=== PATIENT | male | born 1945 | race Caucasian/White ===

== ENCOUNTER → 2021-10-30 07:31 | Outpatient (BNVA) | payer MEDICARE, OTHER, SELFPAY | PROVIDERS: Family Provider Internal Medicine; PCP Internal Medicine; Visit Provider Urology | DX: N32.89 Other specified disorders of bladder (principal); C67.9 Malignant neoplasm of bladder, unspecified; Z86.39 Personal history of other endocrine, nutritional and metabolic disease; I48.0 Paroxysmal atrial fibrillation; Z86.79 Personal history of other diseases of the circulatory system; Z95.1 Presence of aortocoronary bypass graft | CPT/HCPCS: 52000; 81003; 99205 ==

== ENCOUNTER 2021-11-07 14:30 | Observation (INO) | payer MEDICARE, OTHER, SELFPAY ==
[2021-11-07] VITALS (24 sets, daily range): BP systolic 112–157; BP diastolic 50–93; PULSE 60–88; RESP 16–93; TEMP 36.1–36.9; O2SAT 90–100
--- NOTE | 2021-11-07 06:35 | W.PM.OPSUD ---
Surgery/Procedure H&P Update DATE OF PROCEDURE: November 07, 2021 DATE H&P PERFORMED: 10/29/21 H&P UPDATE INFORMATION: I have reviewed H&P completed within last 30 days, I have examined patient prior to procedure, No changes to prior documentation and H[place] is [place] [facility] [place] date indicated CHANGES TO PREVIOUS DOCUMENTATION: Confirm no blood thinners. Patient denied any further questions. Ready to proceed as planned PLANNED PROCEDURE: Operation Date: 11/07/21 08:00 Proposed Procedures p cystoscopy transurethral resection bladder tumor 60055,C67.9(Not Applicable) - Morris Humphries MD s cystoscopy transurethral resection bladder tumor 75967,C67.9(Not Applicable) - Morris Humphries MD
--- NOTE | 2021-11-07 06:46 | ECG_ITS ---
[facility] Test Date: 2021-11-07 Pat Name: Fernando Lowe Department: Room: Gender: Male Sales Planner: : 1945 Requested By: Morris Humphries Order Number: [id number] Jonathon MD: Kristi Ruffin M.D. Measurements Intervals [place] Rate: 71 P: 35 MA: 306 QRS: -19 QRSD: 80 T: 26 QT: 401 QTc: 437 Interpretive Statements SINUS RHYTHM WITH FIRST DEGREE AV BLOCK WITH OCCASIONAL VENTRICULAR PREMATURE COMPLEXES LOW QRS VOLTAGE IN PRECORDIAL LEADS [QRS DEFLECTION < 1.0 mV IN CHEST LEADS] INFERIOR MYOCARDIAL INFARCTION , PROBABLY OLD [40+ ms Q WAVE AND/OR ST/T ABNORMALITY IN II/aVF] Compared to ECG 06/16/2018 21:18:19 Myocardial infarct finding now present T-wave abnormality no longer present Electronically Signed On 11-07-2021 22:25:20 CDT by Kristi Ruffin M.D. [id number]
[2021-11-07 07:11] LABS: Glucose Point of Care 142 mg/dL (70-110)
[2021-11-07] MEDS: sodium chloride 0.9% 1,000 ML 30 ML IV ×2 (07:14→15:12)
[2021-11-07 07:18] LABS: Basophils % 0.6 %; Eosinophils # 0.2 10^3/uL (0.0-0.8); Eosinophils % 2.6 %; Hematocrit 47.8 % (42.0-52.0); Hemoglobin 15.8 g/dL (11.7-16.6); Lymphocytes # 1.5 10^3/uL (0.8-4.8); Lymphocytes % 21.2 %; Mean Corpuscular HGB Conc 33.1 g/dL (30.0-36.0); Mean Corpuscular Hemoglobin 28.8 pg (28.0-34.0); Mean Corpuscular Volume 87.2 fl (80-94); Mean Platelet Volume 9.8 fL (7.4-10.4); Monocytes # 0.5 10^3/uL (0.2-0.9); Monocytes % 7.5 %; Neutrophils # 4.75 10^3/uL (1.8-7.7); Neutrophils % 67.4 %; Nucleated Red Blood Cells % 0 %; Platelet Count 155 10^3/cmm (130-400); Red Blood Count 5.48 10^6/uL (4.1-5.3); Red Cell Distribution Width 13.2 % (12.1-15.1)
[2021-11-07] MEDS: levofloxacin-dextrose 5 % 500 MG/100 ML PREMIX 100 MG IV (07:41)
--- NOTE | 2021-11-07 07:41 | ANES.PREANE2 ---
Pre-Anesthetic Assessment Height/Weight: Height 1.96 m Weight 122.47 kg Temp Pulse Resp BP Pulse Ox 97.1 F L 88 93 H 145/77 93 11/07/21 06:51 11/07/21 06:51 11/07/21 06:51 11/07/21 06:51 11/07/21 06:51 Preop Diagnosis: Newly diagnosed bladder cancer Operation Date: 11/07/21 08:00 Proposed Procedures p cystoscopy transurethral resection bladder tumor 06885,C67.9(Not Applicable) - Morris Humphries MD s cystoscopy transurethral resection bladder tumor 29196,C67.9(Not Applicable) - Morris Humphries MD Familial anesthetic complications: None Was Beta Lauren taken within 24 hours: N/A Was Clonidine taken within 24 hours: N/A Last intake: Intake Last Liquid Date 11/06/21 Last Liquid Time 21:00 Last Solid Date 11/06/21 Last Solid Time 21:00 CV/HEM Atrial Fibrillation, Arrythmia, Coronary Artery Disease (CABG) and Hypertension S Echocardiogram 09/19/17 ?CONCLUSIONS ?1-Normal left ventricular cavity size. Normal left ventricular ?systolic function. No regional wall motion abnormalities. Left ?ventricular ejection fraction is estimated at 59 %. Grade II/IV ?diastolic dysfunction, moderately elevated filling pressures. ?2-No significant valve abnormalities. ?3-There is no pericardial effusion. ?4-Pulmonary artery systolic pressure is within normal limits. ?5-Right atrial pressure is around 5 mm of mercury. ?6-When compared to the prior echocardiogram dated 12/13/2015 ?patient ejection fraction has improved from mildly reduced from? normal 50% to 59% now. ?Emerson Aggarwal MD ? (Electronically Signed) GI Gastroesophageal Reflux Disease Metabolic Diabetes Mellitus, Hyperlipidemia and Morbid Obesity Neuropsych [facility] Anesthetic Plan ASA status: 3 Anesthesia: General Medications/Allergies Home Medications Medication Instructions Recorded Confirmed Last Taken Type acetaminophen 300 mg-codeine 30 mg 1 tab PO BID tab 11/30/19 11/07/21 11/06/21 History tablet gabapentin 600 mg tablet 1,200 mg PO TID tab 11/30/19 11/07/21 11/06/21 History metformin 500 mg tablet,extended 500 mg PO DAILY tab 11/30/19 11/07/21 11/06/21 History release 24 hr pantoprazole 40 mg tablet,delayed 40 mg PO BID tab 11/30/19 11/07/21 11/06/21 History release terazosin 10 mg capsule 10 mg PO DAILY cap 11/30/19 11/07/21 11/06/21 History atorvastatin 40 mg tablet 40 mg PO DAILY #90 tab 06/13/21 11/07/21 11/06/21 Rx furosemide 40 mg tablet (Lasix) 40 mg PO DAILY #90 tab 06/13/21 11/07/21 11/06/21 Rx potassium chloride 20 mEq 20 meq PO DAILY #90 tab 08/20/21 11/07/21 11/06/21 Rx tablet,extended release Allergies Allergy/AdvReac Type Severity Reaction Status Date / Time acetaminophen [From Percocet] Allergy Unknown Unknown Verified 11/06/21 09:52 oxycodone [From Percocet] Allergy Unknown went crazy Verified 11/06/21 09:52 Current Medications Generic Name Dose Route Start Last Admin Trade Name Freq PRN Reason Stop Dose Admin Sodium Chloride 1,000 mls @ 30 mls/hr 11/07/21 06:45 11/07/21 07:14 Sodium Chloride 0.9% IV 11/08/21 06:44 30 mls/hr .Q24H WALTER Administration PFSH Anesthesia Medical History (Updated 10/30/21 @ 10:12 by Morris Humphries MD) A-fib Bladder cancer Bladder mass History of Young's esophagus History of COPD History of deafness History of dysphagia History of heart failure History of low back pain Hx of aneurysm Status post AAA repair Hx of chronic arthritis Hx of coronary atherosclerosis Hx of emphysema Hx of gastroesophageal reflux (GERD) Hx of hyperlipidemia Surgical History (Updated 10/30/21 @ 10:12 by Morris Humphries MD) History of toe surgery RIGHT SIDE BIG TOE REMOVED Hx of appendectomy Hx of CABG Hx of esophagogastroduodenoscopy Hx of foot surgery Family History Father , AT AGE 55 Heart attack Mother , AT AGE 67 Lung disease Social History Smoking and tobacco status: former smoker Alcohol intake: never Marital status: Current occupational status: retired History of recent travel: No Data Anesthesia : 11/07/21 07:08 11/07/21 07:08 Short CBC 11/07/21 Range/Units 07:08 WBC 7.0 (4.0-10.0) 10^3/uL Hgb 15.8 (11.7-16.6) g/dL Hct 47.8 (42.0-52.0) % MCV 87.2 (80-94) fl Plt Count 155 (130-400) 10^3/cmm Neut % (Auto) 67.4 % Neut # (Auto) 4.75 (1.8-7.7) 10^3/uL Cardiac Studies: No Data to Display
[2021-11-07 07:43] LABS: Alanine Aminotransferase 14 U/L (0-41); Albumin Level 4.3 g/dL (3.5-5.2); Alkaline Phosphatase 76 IU/L (40-130); Anion Gap 15.9 (5-19); Aspartate Amino Transferase 20 U/L (0-40); Blood Urea Nitrogen 25 mg/dL (8-23); Calcium 9.2 mg/dL (8.5-10.5); Carbon Dioxide 26 mmol/L (22-29); Chloride 101 mmol/L (98-107); Globulin 3.7 g/dL (1.3-4.6); Glucose 147 mg/dL (65-115); Osmolality Calculated 295 mOsm/kg (285-295); Potassium 3.9 mmol/L (3.5-5.1); Sodium 139 mmol/L (136-145); Total Bilirubin 0.5 mg/dL (0.15-1.2)
[2021-11-07 07:44] LABS: Creatinine Clr Calc Pharmacy 68.9554
--- NOTE | 2021-11-07 07:47 | P.OP_ITS ---
Operative Report Date of procedure: November 07, 2021 Pre-op diagnosis: Newly diagnosed bladder cancer Post-op diagnosis: Newly diagnosed bladder cancer Procedure done: Cystoscopy, transurethral section of bladder tumor large Specimens removed/disposition: Bladder tumor chips Pathology: Bladder tumor specimen Surgeon: Yandel Anesthesia: General Urine output: Not measured Complications: None Brief History: Mr. Lowe is a very pleasant 75-year-old white male with recent diagnosis of gross hematuria. 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 Admitted for TURBT Procedure: After routine preoperative evaluation examination and obtaining of informed consent he was taken to the operating suite on 11/07/2021 where general anesthesia was administered without difficulty after appropriate timeout was performed, SCDs confirmed to be functioning, preoperative antibiotics administered, beta-aarti protocol confirmed. Prepped and draped in the usual sterile fashion in dorsolithotomy position paying careful attention to avoiding pressure points. 21 [place] cystoscope with 30 degree lens was introduced into the urethra meatus and advanced into the bladder under videoscopy. The bladder was systematically examined with both 30 and 70 degree lenses. Cystoscopic findings: The large left lateral wall/bladder neck tumor did not involve the left ureteral orifice. There was a medium sized tumor adjacent to the larger tumor more cephalad in roughly the same lateral location. There were multiple other small tumors around the bladder neck and anterior bladder wall extending down the right bladder neck distal to the left side of the trigone. Orifices were easily identified and not involved with any tumors. Urethra was then calibrated with [place] sounds and accommodated 30 [place]uran. 2% lidocaine jelly was instilled into the urethra and then a 25 [place] continuous-flow resectoscope sheath with visual obturator in place was advanced into the bladder without difficulty. There was some mild posterior dilation trauma. The gyrus bipolar system was utilized for resection fulguration. Super loop was utilized for initial resection down to the base. Deep sampling was obtained with muscle visualized at the base of the resection Button probe was used to obtain meticulous hemostasis The large tumor on the left lateral wall was resected first. It was vascular but easily controlled. After it was resected the medium sized tumor adjacent to it in a more cephalad direction was then resected. Bladder was carefully inspected and there were multiple small papillary tumors circumferential around the bladder neck as well as on anterior wall and extending posteriorly from the right side of the bladder neck towards the distal and lateral aspect of the right trigone. Careful attention was paid throughout the resection to avoid involvement of the orifices and this was accomplished. Muscle was identified at the base of multiple spots of the resection for deep sampling. Button probe was utilized for meticulous hemostasis. All chips were evacuated from the bladder. Hemostasis was visually c onfirmed. Bladder was drained with a 22 [place]uran three-way 30 cc balloon with 30 cc instilled in the balloon. Light CBI with normal saline was initiated. Specimen sent for pathologic evaluation. Catheter was confirmed to be functioning well the procedure was completed. Awakened in the operating room and returned to the recovery room in stable condition. PLANS: 1. Mitomycin this afternoon or tomorrow morning pending clearing of urine 2. Plan on discharging tomorrow most likely without catheter after voiding trial with 6 bottle void
[2021-11-07] MEDS: lidocaine 2% Urojet 20 mL TOPICAL (08:16)
--- NOTE | 2021-11-07 14:17 | ANE.PACU2 ---
Inpatient post-anesthesia follow up: Airway intact: Yes Vital signs: Temperature 97.0 F Pulse Rate 76 Respiratory Rate 18 Blood Pressure 127/64 Pulse Oximetry 93 Oxygen Delivery Me thod Room Air Oxygen Flow Rate 2 Fraction of Inspir ed Oxygen Hydration adequate: Yes Nausea and vomiting: No Pain level: 2 Mental status: Baseline
[2021-11-07] MEDS: atorvastatin 40 mg Tablet PO (15:11)
[2021-11-07] MEDS: gabapentin 400 mg Capsule 1200 MG PO ×2 (15:11→20:02)
[2021-11-07] MEDS: potassium chloride ER 20 mEq Tablet PO (15:11)
[2021-11-07] MEDS: docusate sodium 100 mg Capsule PO (15:11)
[2021-11-07] MEDS: pantoprazole DR 40 mg Tablet PO (15:12)
[2021-11-07] MEDS: acetaminophen-codeine 300-30mg Tablet 1 TAB PO (15:12)
[2021-11-07] MEDS: FUROsemide 40 mg Tablet PO (15:12)
--- NOTE | 2021-11-07 19:27 | PC.NURSE ---
Bedside Report to Maribel SINGER at this time.
[2021-11-08 02:00] VITALS: BP 142/78; PULSE 65; RESP 17; TEMP 36.6; O2SAT 94
[2021-11-08 06:32] VITALS: BP 121/66; PULSE 63; RESP 17; TEMP 36.6; O2SAT 92
[2021-11-08 08:00] VITALS: PULSE 77; O2SAT 93
--- NOTE | 2021-11-08 08:33 | P.DS_ITS ---
Discharge Providers Date of Admission: 11/07/21 14:30 Date of Discharge: November 08, 2021 Attending Provider at Admission: Morris Humphries MD Attending Provider at Discharge: Morris Humphries MD Primary Care Provider: Oscar Mcmanus DO Diagnoses at Discharge Discharge Diagnosis (1) Bladder cancer: Status: Acute Reason for Visit Reason for Visit: Brief History: Mr. Lowe is a very pleasant 75-year-old white male who was admitted for transurethral section of bladder tumor which was recently diagnosed during work- up for gross hematuria. Hospital Course Hospital Course Admitted on 11/07/2021 for TURBT. Was found to have a larger burden of tumor within expected. Most of the tumor was on the left lateral wall near the bladder neck and extending cephalad direction but he also had multiple areas of small bladder tumors on the anterior bladder wall and around the bladder neck. All tumor was resected. Was maintained on short-term CBI which was weaned off rapidly. Urine remained clear. On postop day #1 he underwent mitomycin instillation into the bladder which she held for 1 hour without complication. Based on the degree of resection and volume of resection it was decided to leave a catheter in for several days and do a voiding trial in clinic following week. He was discharged on postop day #1 in stable condition. Physical Exam Narrative: Alert oriented no acute distress pleasant cooperative throughout exam Hard of hearing Neck good range of motion No labored respiration no audible wheezing Abdomen is soft nontender, no palpable masses Urine is clear. Normal genitourinary exam. Catheter functioning well. Good range of motion of extremities. Urinary Catheter Management: 3-way Urethral CBI: Cath Placed During This Visit: yes Reason for Continuing Indwelling Catheter: Other Urinary Catheter Date of Insertion: 11/07/21 Urinary Catheter Time of Insertion: 09:00 Discharge Data Studies Completed and Pending Pending at discharge Category Date Time Status Pathology: Surgical [PTH] Routine Pth 11/07/21 09:23 Received Laboratory Results WBC 7.0 10^3/uL (4.0-10.0) 11/07/21 07:08 RBC 5.48 10^6/uL (4.1-5.3) H 11/07/21 07:08 Hgb 15.8 g/dL (11.7-16.6) 11/07/21 07:08 Hct 47.8 % (42.0-52.0) 11/07/21 07:08 MCV 87.2 fl (80-94) 11/07/21 07:08 MCH 28.8 pg (28.0-34.0) 11/07/21 07:08 MCHC 33.1 g/dL (30.0-36.0) 11/07/21 07:08 RDW 13.2 % (12.1-15.1) 11/07/21 07:08 Plt Count 155 10^3/cmm (130-400) 11/07/21 07:08 MPV 9.8 fL (7.4-10.4) 11/07/21 07:08 Neut % (Auto) 67.4 % 11/07/21 07:08 Lymph % (Auto) 21.2 % 11/07/21 07:08 [place] % (Auto) 7.5 % 11/07/21 07:08 Eos % (Auto) 2.6 % 11/07/21 07:08 Baso % (Auto) 0.6 % 11/07/21 07:08 Neut # (Auto) 4.75 10^3/uL (1.8-7.7) 11/07/21 07:08 Lymph # (Auto) 1.5 10^3/uL (0.8-4.8) 11/07/21 07:08 [place] # (Auto) 0.5 10^3/uL (0.2-0.9) 11/07/21 07:08 Eos # (Auto) 0.2 10^3/uL (0.0-0.8) 11/07/21 07:08 Baso # (Auto) 0.0 10^3/uL (0.0-0.1) 11/07/21 07:08 Nucleated RBC % (auto) 0 % 11/07/21 07:08 Nucleated RBCs # 0.0 /100WBC 11/07/21 07:08 Sodium 139 mmol/L (136-145) 11/07/21 07:08 Potassium 3.9 mmol/L (3.5-5.1) 11/07/21 07:08 Chloride 101 mmol/L (98-107) 11/07/21 07:08 Carbon Dioxide 26 mmol/L (22-29) 11/07/21 07:08 Anion Gap 15.9 (5-19) 11/07/21 07:08 BUN 25 mg/dL (8-23) H 11/07/21 07:08 Creatinine 1.3 mg/dL (0.7-1.2) H 11/07/21 07:08 GFR Calculation Not Reportable 11/07/21 07:08 Glucose 147 mg/dL (65-115) H 11/07/21 07:08 POC Glucose 142 mg/dL (70-110) H 11/07/21 07:06 Calculated Osmolality 295 mOsm/kg (285-295) 11/07/21 07:08 Calcium 9.2 mg/dL (8.5-10.5) 11/07/21 07:08 Total Bilirubin 0.5 mg/dL (0.15-1.2) 11/07/21 07:08 AST 20 U/L (0-40) 11/07/21 07:08 ALT 14 U/L (0-41) 11/07/21 07:08 Alkaline Phosphatase 76 IU/L (40-130) 11/07/21 07:08 Total Protein 8.0 g/dL (6.6-8.7) 11/07/21 07:08 Albumin 4.3 g/dL (3.5-5.2) 11/07/21 07:08 Globulin 3.7 g/dL (1.3-4.6) 11/07/21 07:08 Procedures Performed Cystoscopy, transurethral section of bladder tumor large Vitals Last Vital Signs Temp 97.9 F 11/08/21 06:32 Pulse 63 11/08/21 06:32 Resp 17 11/08/21 06:32 BP 121/66 11/08/21 06:32 Pulse Ox 92 11/08/21 06:32 Discharge Plan Discharge Patient Disposition: Home Condition: Stable Prescriptions: Continued acetaminophen-codeine 300-30 mg tablet 1 tab PO BID 0RF metformin 500 mg tablet extended release 24 hr 500 mg PO DAILY 0RF gabapentin 600 mg tablet 1,200 mg PO TID 0RF terazosin 10 mg capsule 10 mg PO DAILY 0RF pantoprazole 40 mg tablet,delayed release (DR/EC) 40 mg PO BID 0RF atorvastatin 40 mg tablet 40 mg PO DAILY Qty: 90 4RF furosemide [Lasix] 40 mg tablet 40 mg PO DAILY Qty: 90 4RF potassium chloride 20 mEq tablet extended release 20 meq PO DAILY Qty: 90 4RF Discharge Orders: Discharge Order (Routine); Ordered 11/08/21 Ordered By: Morris Humphries Referrals: Morris Humphries MD [Physician] - 11/12/21 (Voiding trial) Discharge Diet: Usual diet Discharge Activity: Limit activity as instructed Activity Restrictions/Additional Instructions: 1. We will leave the catheter in until your follow-up early next week. 2. You can continue a leg bag or night bag whichever you prefer. 3. You were encouraged to drink a lot of fluids to keep your urine clear. 4. Avoid any lifting >10 pounds for about 3 to 4 weeks. 5. Please call if you have concerns or questions about your catheter function. Discharge Attestations Time Spent in Discharge Care*: less than 30 min Quality Metrics Clinical Quality Measures [ No reported AMI, CVA or VTE this stay] Coding Level of Care Code Acute Chg FW DC note Diagnoses Bladder cancer C67.9
[2021-11-08] MEDS: metformin XR 500 MG Tablet PO (09:00)
[2021-11-08] MEDS: pantoprazole DR 40 mg Tablet PO (09:37)
[2021-11-08] MEDS: gabapentin 400 mg Capsule 1200 MG PO (09:37)
[2021-11-08] MEDS: potassium chloride ER 20 mEq Tablet PO (09:38)
[2021-11-08] MEDS: FUROsemide 40 mg Tablet PO (09:38)
[2021-11-08] MEDS: atorvastatin 40 mg Tablet PO (09:38)
[2021-11-08] MEDS: docusate sodium 100 mg Capsule PO (09:38)
--- NOTE | 2021-11-08 09:53 | PC.CHAP ---
Pastoral Care Encounter/Spiritual Assessment Type of Contact [] Declined telecommunications linesworker visit [] Patient/Family/Request visit [] Outpatient visit [] Follow-up visit [] Physician referral [] Code/Alert [x] Routine visit [] Staff referral [] Actively dying [] Patient sleeping [] Family support [] [] Out of room [] Palliative care [] [x] Receiving care in room [] Pre-surgical visit [] Trauma [] Long length of stay [] ICU visit [] Other: Relational/Emotional Strength [x] Patient feels connected with others/family/visitors/staff [] Distress [] Loneliness/isolation [] Abandonment Spirituality of Patient [x] Person of Roxana [] Attends Tenriism of their Roxana [x] Believes in Prayer [] Reads Bible or Mormon materials [] There are Spiritual issues to be addressed Bonding Agent Interventions [x] Prayer [x] Active listening [x] Non-anxious presence [x] Spiritual/emotional support [] Crisis/trauma care [x] Spiritual counseling [] Bereavement support [] Provided bereavement packet [] Provided Bible/devotional materials [] Provided toy/stuffed animal, coloring book to patient or family member [] Provided Communion [] Anointing/Sharon [] Salvation [x] Completed spiritual assessment [] Other: Impact on Illness or Injury [] Angry [] Fearful [] Anxious [] Often cries [] Exhaustion [] Unable to work [] Unable to attend christianity [] Unable to walk/stand [] Unable to read [] Unable to drive [] Unable to eat/drink [] Unable to sleep [] Unable to be with family [] Patient intubated [] Other: Summary had a proceeduer chemo on blader they check from time to time is going nhome has a good attitude +1 Time spent with patient 10 mins
[2021-11-08] MEDS: terazosin 5 mg Capsule 10 MG PO (09:59)
--- NOTE | 2021-11-08 10:27 | PC.NURSE ---
Discharge Note Patient discharged to home via private vehicle accompanied by spouse. Discharge instructions reviewed with patient and/or marketing representative. Mobile pharmacy medications and/or prescriptions provided. Belongings/home medications returned.
--- NOTE | 2021-11-08 10:43 | PC.NURSE ---
Instructed patient on how to switch between the leg bag and the night drainage bag. Patient stated understanding.
[2021-11-08 10:44] VITALS: PULSE 77; O2SAT 93
== END 2021-11-08 10:15 | disposition home or self-care (01) ==
LOC: MEDSURG 14:38
PROVIDERS: Admitting Provider Urology; PCP Internal Medicine; Visit Provider Urology
PROC: 0TBB8ZZ Excision of Bladder, Via Natural or Artificial Opening Endoscopic (ICD-10-PCS; CPT 52240; principal; 2021-11-07 08:00)
PROC: 0TJB8ZZ Inspection of Bladder, Via Natural or Artificial Opening Endoscopic (ICD-10-PCS; CPT 52000; 2021-11-07 08:00)
DX: C67.9 Malignant neoplasm of bladder, unspecified (principal); K21.9 Gastro-esophageal reflux disease without esophagitis; E11.9 Type 2 diabetes mellitus without complications; E78.5 Hyperlipidemia, unspecified; E66.01 Morbid (severe) obesity due to excess calories; Z68.32 Body mass index [BMI] 32.0-32.9, adult; I48.91 Unspecified atrial fibrillation; I50.9 Heart failure, unspecified; J43.9 Emphysema, unspecified; Z87.891 Personal history of nicotine dependence
CPT/HCPCS: 52240; 36415; 36416; 51702; 80053; 82962; 85025; 88307; 93005; G0378; J0330; J1100; J1956; J2405; J2704; J3010; J3490; J7030; J9280

== ENCOUNTER → 2021-11-12 12:45 | Outpatient (BNVA) | payer MEDICARE, OTHER, SELFPAY | PROVIDERS: PCP Internal Medicine; Visit Provider Urology | DX: C67.9 Malignant neoplasm of bladder, unspecified (principal) | CPT/HCPCS: 99214 ==

== ENCOUNTER → 2021-12-05 10:48 | Outpatient (BNVA) | payer MEDICARE, OTHER, SELFPAY | PROVIDERS: PCP Internal Medicine; Visit Provider Nurse Practitioner Family | DX: Z51.0 Encounter for antineoplastic radiation therapy (principal); C67.8 Malignant neoplasm of overlapping sites of bladder; R31.0 Gross hematuria; Z79.899 Other long term (current) drug therapy | CPT/HCPCS: 77386; 99214; 99215 ==

== ENCOUNTER → 2021-12-10 13:15 | Outpatient (BNVA) | payer MEDICARE, OTHER, SELFPAY | PROVIDERS: PCP Internal Medicine; Visit Provider Nurse Practitioner Family | DX: C67.9 Malignant neoplasm of bladder, unspecified (principal); Z51.0 Encounter for antineoplastic radiation therapy | CPT/HCPCS: 77386 ==

== ENCOUNTER 2021-12-21 10:27 | Oncology outpatient (recurring) (ONCR) | payer MEDICARE, OTHER, SELFPAY ==
--- NOTE | 2021-11-28 14:41 | N.ONRAD NP_ITS ---
Radiation Oncology Consultation Patient Name: Fernando Lowe Date of : 1945 Date of Service: 11/28/2021 Attending Physician: Marshall Bhatti M.D. Fernando Lowe was seen in consultation this afternoon at the request of Earl Aguirre M.D. for consideration of bladder preservation radiotherapy for the management of a recently diagnosed bladder cancer. The patient was by his primary care physician in August for complaints of gross hematuria, dysuria, and urgency. An abdominopelvic CT scan (requested from the outside hospital and independently reviewed in [facility]) ordered on September 20, 2021 identified a 2.9 cm x 2.3 cm filling-defect within the left posterior aspect of the bladder No lymphadenopathy was reported. He was referred to [facility] for further management. A cystoscopy completed on October 30, 2021 confirmed a large, papillary tumor within the left lateral, posterior bladder floor. A transurethral resection of bladder tumor was performed by Morris Humphries M.D. on November 07, 2021. Intraoperative findings described a involving the left lateral wall of the bladder extending to the trigone. 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 Patient was admitted for intravesicular Mitomycin-C that was instilled on post-op day 1. He was discharged with a Pavon catheter which was removed following a voiding trial on November 12, 2021. He was evaluated for organ preservation management. I discussed the [place] [employer] on Cancer Staging and specifically the patient's clinical stage II (T2aN0 vs T2bN0) bladder cancer, I also reviewed the National Comprehensive Cancer Network Guidelines recommending neoadjuvant chemotherapy followed by radical cystectomy or preservation with concurrent chemoradiotherapy (both medical treatment options are category 1). Organ preservation was predicated on the RTOG 89???03 Trial that evaluated concurrent chemoradiotherapy with cisplatin with or without induction MCV and the HK1344 Study that compared (hypofractionation or standard fractionation) with or without synchronous chemotherapy (5-FU and Mitomycin-C). The RTOG study revealed equivalent overall survival and the trial confirmed improve local regional control with concurrent chemoradiotherapy. I would endorse hypofractionated radiotherapy. Prior to beginning treatment, a planning CT scan with contrast will be acquired to delineate the clinical target volume. The patient's medical treatment plan has been discussed with Earl Aguirre M.D. Signed by: Dr. Mrashall Bhatti 11/28/2021 2:39:52 PM
--- NOTE | 2021-12-03 | CT_ITS ---
Radiation Therapy Planning CT images; total exam DLP: 1067.83 mGy-cm MTDD
[2021-12-05 11:20] LABS: Basophils % 0.5 %; Eosinophils # 0.2 10^3/uL (0.0-0.8); Eosinophils % 2.3 %; Hemoglobin 14.8 g/dL (11.7-16.6); Lymphocytes # 1.3 10^3/uL (0.8-4.8); Lymphocytes % 19.5 %; Mean Corpuscular HGB Conc 32.9 g/dL (30.0-36.0); Mean Corpuscular Volume 88.1 fl (80-94); Mean Platelet Volume 10.4 fL (7.4-10.4); Monocytes # 0.4 10^3/uL (0.2-0.9); Monocytes % 6.5 %; Neutrophils # 4.73 10^3/uL (1.8-7.7); Nucleated Red Blood Cells % 0 %; Platelet Count 141 10^3/cmm (130-400); Red Blood Count 5.11 10^6/uL (4.1-5.3); Red Cell Distribution Width 13.5 % (12.1-15.1); White Blood Count 6.7 10^3/uL (4.0-10.0)
[2021-12-05 11:22] VITALS: BMI 30.4
[2021-12-05 11:37] LABS: Alanine Aminotransferase 19 U/L (0-41); Albumin Level 4.4 g/dL (3.5-5.2); Alkaline Phosphatase 85 IU/L (40-130); Anion Gap 17.1 (5-19); Aspartate Amino Transferase 18 U/L (0-40); Blood Urea Nitrogen 29 mg/dL (8-23); Calcium 9.5 mg/dL (8.5-10.5); Carbon Dioxide 26 mmol/L (22-29); Chloride 101 mmol/L (98-107); Globulin 3.2 g/dL (1.3-4.6); Glucose 117 mg/dL (65-115); Osmolality Calculated 297 mOsm/kg (285-295); Potassium 4.1 mmol/L (3.5-5.1); Sodium 140 mmol/L (136-145); Total Bilirubin 0.7 mg/dL (0.15-1.2); Total Protein 7.6 g/dL (6.6-8.7)
[2021-12-05] MEDS: sodium chloride 0.9% 250 ML 75 ML IV (14:01)
[2021-12-05] MEDS: ondansetron 2 mg/ML SDV 2 mL 8 MG IVP (14:06)
[2021-12-05 15:00] VITALS: BP 112/65; PULSE 62; RESP 18; TEMP 36.2; O2SAT 95
[2021-12-07 08:08] VITALS: BMI 30.9
[2021-12-07] MEDS: sodium chloride 0.9% 250 ML 75 ML IV (08:43)
[2021-12-07] MEDS: ondansetron 2 mg/ML SDV 2 mL 8 MG IVP (08:47)
[2021-12-07 09:54] VITALS: BP 122/70; PULSE 75; RESP 18; TEMP 36.2; O2SAT 95
[2021-12-10 13:41] LABS: Basophils % 0.4 %; Eosinophils # 0.1 10^3/uL (0.0-0.8); Eosinophils % 2.3 %; Hematocrit 40.9 % (42.0-52.0); Hemoglobin 13.6 g/dL (11.7-16.6); Lymphocytes % 17.3 %; Mean Corpuscular HGB Conc 33.3 g/dL (30.0-36.0); Mean Corpuscular Hemoglobin 29.1 pg (28.0-34.0); Mean Corpuscular Volume 87.4 fl (80-94); Monocytes # 0.1 10^3/uL (0.2-0.9); Monocytes % 2.5 %; Neutrophils # 4.37 10^3/uL (1.8-7.7); Neutrophils % 77.1 %; Nucleated Red Blood Cells % 0 %; Platelet Count 149 10^3/cmm (130-400); Red Blood Count 4.68 10^6/uL (4.1-5.3); Red Cell Distribution Width 13.1 % (12.1-15.1); White Blood Count 5.7 10^3/uL (4.0-10.0)
[2021-12-10 13:57] LABS: Alanine Aminotransferase 19 U/L (0-41); Alkaline Phosphatase 73 IU/L (40-130); Anion Gap 16.4 (5-19); Aspartate Amino Transferase 17 U/L (0-40); Blood Urea Nitrogen 31 mg/dL (8-23); Calcium 9.5 mg/dL (8.5-10.5); Carbon Dioxide 24 mmol/L (22-29); Chloride 104 mmol/L (98-107); Creatinine Clr Calc Pharmacy 86.8131; Globulin 3.1 g/dL (1.3-4.6); Glucose 136 mg/dL (65-115); Osmolality Calculated 299 mOsm/kg (285-295); Potassium 4.4 mmol/L (3.5-5.1); Sodium 140 mmol/L (136-145); Total Bilirubin 0.5 mg/dL (0.15-1.2); Total Protein 7.1 g/dL (6.6-8.7)
[2021-12-10] MEDS: sodium chloride 0.9% 250 ML 100 ML IV (14:47)
[2021-12-10] MEDS: ondansetron 2 mg/ML SDV 2 mL 8 MG IVP (14:47)
[2021-12-10 16:17] VITALS: BP 102/51; PULSE 66; TEMP 36.6; O2SAT 97
--- NOTE | 2021-12-11 16:27 | ONCRAD TMN_ITS ---
Radiation Oncology Weekly Treatment Management Patient: Mynor King> MR#: [id number] : 1945> Attending Physician: Dr. Brian Olivares Date of Service: 12/11/2021 Referring Physician(s) : Petrona Aguirre M.D. Diagnosis: C67.9 - Malignant neoplasm of bladder, unspecified, Diagnosed 11/07/2021 (Active) Stage II, pT2a, N0, M0 Radiotherapy to date: Course: Bladder Ca, Treatment Site: Bladder Ca, Ref. ID: [id number], Energy: 15X, Dose/Fx (cGy): 275, #Fx: , Dose Correction (cGy): 0, Total Dose (cGy): 1,375, Start Date: 12/05/2021, End Date: 12/11/2021, Elapsed Days: 6 Reason for visit: The patient is being seen today as part of their regularly scheduled weekly on treatment visits to assess for acute toxicities from radiotherapy. Review of Systems: Mr. Lowe states he is developed a headache after reach session of chemotherapy. He still has a headache from chemo yesterday. After his first session of chemotherapy the headache cleared in about 2 days. The headache is frontal in location and there are no other suspicious symptoms related to it. He is taking Tylenol. He complains of fatigue. In terms of the urinary tract, at times his bladder function is near normal. He says occasionally he will leak urine without warning. This problem began after starting radiation. He has no dysuria, hematuria, or pyuria. Bowel movements are normal. Vital Signs: Performed on 12/11/2021 3:39 PM BMI - 30.381 kg/m2 (high), Height - 77 in, Weight - 256.2 lbs, Temperature - 97.5 f, Pulse - 83 /min, Respiration - 20 /min, O2 Sat - 93 % (low), Pain - 7, Fatigue - 4 and BP - 109/ 51 mm(hg)(/low). Physical Exam: Alert, oriented, no acute distress. Ambulatory without assistance. No gross neurologic deficit. Imaging: Radiation therapy imaging related to accurate target localization (i.e. KV, MV and CBCT) was reviewed. Appropriate changes, if any, were made to ensure treatment accuracy. Plan: Continue treatment according to plan. In terms of the intermittent incontinence, I told the patient that problem could get worse, stay the same, or get better during treatment. He will let us know if the headaches persist. Signed by: Dr. Brian Olivares 12/11/2021 4:25:38 PM
[2021-12-13 13:58] LABS: Basophils % 0.5 %; Eosinophils % 0.7 %; Hematocrit 39.6 % (42.0-52.0); Hemoglobin 13.4 g/dL (11.7-16.6); Lymphocytes # 0.8 10^3/uL (0.8-4.8); Lymphocytes % 18.2 %; Mean Corpuscular HGB Conc 33.8 g/dL (30.0-36.0); Mean Corpuscular Hemoglobin 29.3 pg (28.0-34.0); Mean Corpuscular Volume 86.7 fl (80-94); Mean Platelet Volume 9.4 fL (7.4-10.4); Monocytes # 0.1 10^3/uL (0.2-0.9); Monocytes % 2.8 %; Neutrophils # 3.25 10^3/uL (1.8-7.7); Neutrophils % 76.6 %; Nucleated Red Blood Cells % 0 %; Platelet Count 124 10^3/cmm (130-400); Red Blood Count 4.57 10^6/uL (4.1-5.3); Red Cell Distribution Width 13.1 % (12.1-15.1); White Blood Count 4.2 10^3/uL (4.0-10.0)
[2021-12-13] MEDS: ondansetron 2 mg/ML SDV 2 mL 8 MG IVP (14:05)
[2021-12-13] MEDS: sodium chloride 0.9% 250 ML 75 ML IV (14:05)
[2021-12-13 14:25] LABS: Alanine Aminotransferase 39 U/L (0-41); Albumin Level 4.2 g/dL (3.5-5.2); Alkaline Phosphatase 70 IU/L (40-130); Aspartate Amino Transferase 34 U/L (0-40); Blood Urea Nitrogen 26 mg/dL (8-23); Calcium 9.5 mg/dL (8.5-10.5); Carbon Dioxide 25 mmol/L (22-29); Chloride 103 mmol/L (98-107); Globulin 3.3 g/dL (1.3-4.6); Glucose 144 mg/dL (65-115); Osmolality Calculated 297 mOsm/kg (285-295); Sodium 140 mmol/L (136-145); Total Bilirubin 0.7 mg/dL (0.15-1.2); Total Protein 7.5 g/dL (6.6-8.7)
[2021-12-13 15:10] VITALS: BP 114/63; PULSE 76; RESP 18; TEMP 36.3; O2SAT 95
[2021-12-17 14:15] LABS: Basophils % 0.2 %; Eosinophils % 0.9 %; Hematocrit 39.2 % (42.0-52.0); Hemoglobin 13.2 g/dL (11.7-16.6); Lymphocytes # 0.6 10^3/uL (0.8-4.8); Lymphocytes % 12.7 %; Mean Corpuscular HGB Conc 33.7 g/dL (30.0-36.0); Mean Corpuscular Volume 89.1 fl (80-94); Mean Platelet Volume 9.6 fL (7.4-10.4); Monocytes # 0.2 10^3/uL (0.2-0.9); Neutrophils % 81.3 %; Nucleated Red Blood Cells % 0 %; Platelet Count 100 10^3/cmm (130-400); Red Cell Distribution Width 13.3 % (12.1-15.1); White Blood Count 4.6 10^3/uL (4.0-10.0)
[2021-12-17] MEDS: sodium chloride 0.9% 250 ML 100 ML IV (15:31)
[2021-12-17] MEDS: ondansetron 2 mg/ML SDV 2 mL 8 MG IVP (15:32)
[2021-12-17 16:36] VITALS: BP 121/77; PULSE 87; TEMP 36.7; O2SAT 99
[2021-12-17 18:25] LABS: Alanine Aminotransferase 40 U/L (0-41); Albumin Level 4.4 g/dL (3.5-5.2); Alkaline Phosphatase 74 IU/L (40-130); Anion Gap 16.1 (5-19); Aspartate Amino Transferase 33 U/L (0-40); Blood Urea Nitrogen 21 mg/dL (8-23); Calcium 9.6 mg/dL (8.5-10.5); Carbon Dioxide 27 mmol/L (22-29); Chloride 99 mmol/L (98-107); Globulin 3.2 g/dL (1.3-4.6); Glucose 120 mg/dL (65-115); Osmolality Calculated 290 mOsm/kg (285-295); Potassium 4.1 mmol/L (3.5-5.1); Sodium 138 mmol/L (136-145); Total Bilirubin 0.6 mg/dL (0.15-1.2); Total Protein 7.6 g/dL (6.6-8.7)
[2021-12-17 21:05] LABS: Alanine Aminotransferase 41 U/L (0-41); Albumin Level 4.3 g/dL (3.5-5.2); Alkaline Phosphatase 72 IU/L (40-130); Aspartate Amino Transferase 32 U/L (0-40); Blood Urea Nitrogen 21 mg/dL (8-23); Calcium 9.5 mg/dL (8.5-10.5); Carbon Dioxide 26 mmol/L (22-29); Chloride 98 mmol/L (98-107); Globulin 3.3 g/dL (1.3-4.6); Glucose 119 mg/dL (65-115); Osmolality Calculated 290 mOsm/kg (285-295); Sodium 138 mmol/L (136-145); Total Bilirubin 0.6 mg/dL (0.15-1.2); Total Protein 7.6 g/dL (6.6-8.7)
--- NOTE | 2021-12-18 15:45 | ONCRAD TMN_ITS ---
Radiation Oncology Weekly Treatment Management Patient: Mynor King MR#: [id number] : 1945 Attending Physician: Dr. Brian Olivares Date of Service: 12/18/2021 Referring Physician(s) : Petrona Aguirre M.D. Diagnosis: C67.9 - Malignant neoplasm of bladder, unspecified, Diagnosed 11/07/2021 (Active) Stage II, pT2a, N0, M0 Radiotherapy to date: Course: Bladder Ca, Treatment Site: Bladder Ca, Ref. ID: [id number], Energy: 15X, Dose/Fx (cGy): 275, #Fx: , Dose Correction (cGy): 0, Total Dose (cGy): 2,750, Start Date: 12/05/2021, Elapsed Days: 13 Reason for visit: The patient is being seen today as part of their regularly scheduled weekly on treatment visits to assess for acute toxicities from radiotherapy. Review of Systems: Mr. Lowe complains about the multiple attempts to start on IV. He only has 3 more sessions of chemotherapy so I explained its not worthwhile to put in a central line. He did not have any headache after this week session of chemotherapy. His fatigue is stable. His bladder function is stable though he complains less of leaking urine. No change in bowel movements. Vital Signs: Performed on 12/18/2021 3:27 PM BMI - 29.361 kg/m2 (high), Height - 77 in, Weight - 247.6 lbs, Temperature - 97.6 f, Pulse - 85 /min, Respiration - 20 /min, O2 Sat - 95 % (low), Pain - 0, Fatigue - 9 and BP - 93/ 59 mm(hg)(/low). Physical Exam: Alert, oriented, no acute distress. Breathing is quiet and unlabored. Normal gait without assistance. Imaging: Radiation therapy imaging related to accurate target localization (i.e. KV, MV and CBCT) was reviewed. Appropriate changes, if any, were made to ensure treatment accuracy. Plan: Continue treatment according to plan. Signed by: Dr. Brian Olivares 12/18/2021 3:44:27 PM
[2021-12-20] MEDS: sodium chloride 0.9% 500 ML 250 ML IV (14:12)
[2021-12-20 14:16] LABS: Bilirubin Urine Neg (Negative); Glucose Urine UA Norm (Normal); Ketones Urine Negative (Negative); Nitrate Urine Negative (Negative); Protein Urine Neg (Negative); Urine Appearance Hazy (CLEAR); Urine Color Yellow (Yellow); Urobilinogen Urine 1 mg/dL (Negative); pH Urine 5 (5-7)
[2021-12-20 14:17] LABS: Add Urine Microscopic? YES; Blood Urine 2+ (Negative); Leukocyte Esterase Urine 2+ (Negative)
[2021-12-20 14:17] LABS: Eosinophils # 0.1 10^3/uL (0.0-0.8); Hematocrit 38.7 % (42.0-52.0); Lymphocytes # 0.7 10^3/uL (0.8-4.8); Monocytes # 0.2 10^3/uL (0.2-0.9); Nucleated Red Blood Cells % 0 %; Red Cell Distribution Width 13.4 % (12.1-15.1)
[2021-12-20 14:21] LABS: Add Urine Culture? Yes; Bacteria Urine 2+ /hpf; RBC Urine 0-4 /hpf (0-2); Squamous Epithelial Cell Urine 0-4 /hpf (0-5); WBC Urine TOO NUMEROUS TO CNT /hpf (0-5)
[2021-12-20 14:29] LABS: Hemoglobin 13.1 g/dL (11.7-16.6); Mean Corpuscular HGB Conc 33.9 g/dL (30.0-36.0); Mean Corpuscular Volume 88.8 fl (80-94); Mean Platelet Volume 9.1 fL (7.4-10.4); Platelet Count 126 10^3/cmm (130-400); Red Blood Count 4.36 10^6/uL (4.1-5.3); White Blood Count 4.8 10^3/uL (4.0-10.0)
[2021-12-20 14:30] LABS: Basophils % 0.4 %; Lymphocytes % 14.5 %; Monocytes % 4.8 %; Neutrophils % 78.7 %
[2021-12-20 14:49] LABS: Alanine Aminotransferase 68 U/L (0-41); Alkaline Phosphatase 82 IU/L (40-130); Aspartate Amino Transferase 33 U/L (0-40); Blood Urea Nitrogen 25 mg/dL (8-23); Calcium 9.3 mg/dL (8.5-10.5); Carbon Dioxide 26 mmol/L (22-29); Chloride 99 mmol/L (98-107); Globulin 3.1 g/dL (1.3-4.6); Glucose 113 mg/dL (65-115); Osmolality Calculated 291 mOsm/kg (285-295); Sodium 138 mmol/L (136-145); Total Bilirubin 0.6 mg/dL (0.15-1.2); Total Protein 7.1 g/dL (6.6-8.7)
--- NOTE | 2022-01-01 15:35 | N.ONRD TS_ITS ---
Radiation OncologyTreatment Summary Patient Name: Fernando Lowe Date of : 1945 Date of Service: 01/01/2022 Attending Physician: Marshall Bhatti M.D. Fernando Lowe has completed bladder-preservation radiotherapy for the management of a presumed clinical stage II (T2aN0 vs T2bN0) urothelial carcinoma of the bladder. The patient was evaluated by his primary care physician in August for complaints of gross hematuria, dysuria, and urgency. An abdominopelvic CT scan ordered on September 20, 2021 identified a 2.9 cm x 2.3 cm filling-defect within the left posterior aspect of the bladder No lymphadenopathy was reported. He was referred to [facility] for further management. A cystoscopy completed on October 30, 2021 confirmed a large, papillary tumor within the left lateral, posterior bladder floor. A transurethral resection of the bladder tumor was performed by Morris Humphries M.D. on November 07, 2021. Intraoperative findings described a involving the left lateral wall of the bladder extending to the trigone. 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 Patient was admitted for intravesicular Mitomycin-C that was instilled on post-op day 1. He was discharged with a Pavon catheter which was removed following a voiding trial on November 12, 2021. Pelvic radiation therapy was delivered between the dates of December 05, 2021 through January 01, 2022. A prescribed dose of 55 Gy was delivered in 20 fractions encompassing 28 elapsed days. The bladder was treated utilizing an intensity modulated radiotherapy plan with a step and shoot treatment technique. The plan arranged nine gantry angles (0???, 30???, 60???, 90???, 140???, 220???, 260???, 300???, and 330???) replicating an arc. The collimator rotation was 0???. The field sizes spanned between 14 cm x 9.5 cm to 14.8 cm x 10 cm. The SSDs measured a minimum of 77.9 cm to a maximum of 90.9 cm. The ports delivered 209 MU, 173 MU, 181 MU, 174 MU, 129 MU, 129 MU, 158 MU, 172 MU, and 197 MU corresponding to the gantry angles described. All treatments were performed with the Varian iX linear accelerator and an isocentric technique. High energy photons were prescribed. The dose was calculated by Anisotropic Analytic Algorithm with the plan normalized to deliver 100% of the prescription dose to 95% of the planning target volume. Signed by: Dr. Marshall Bhatti 01/01/2022 3:33:47 PM
== END 2021-12-23 23:59 | disposition home or self-care (01) ==
PROVIDERS: Internal Medicine Hematology & Oncology; Nurse Practitioner Family; PCP Internal Medicine; Visit Provider Specialist
DX: Z51.0 Encounter for antineoplastic radiation therapy (principal); C67.9 Malignant neoplasm of bladder, unspecified; Z45.2 Encounter for adjustment and management of vascular access device
CPT/HCPCS: 36415; 36569; 71045; 77014; 77300; 77301; 77334; 77336; 77338; 77386; 77470; 80053; 81001; 85025; 96365; 96375; 96413; 99205; 99214; 99215; J2405; J7040; J7050; J9201

== ENCOUNTER → 2021-12-21 11:06 | Day surgery (SDC) | payer MEDICARE, OTHER, SELFPAY ==
--- NOTE | 2021-12-21 10:26 | XR_ITS ---
WS: [id number] Exam: XR chest 1V portable [id number] Date/Time of Exam: 12/21/2021 10:26 AM Reason For Exam: PICC line insertion Comparison 06/16/2018. A right-sided PICC line has been placed and ends in the lower one third of the SVC. There are chronic interstitial changes noted throughout both lungs. Mild cardiac enlargement unchanged. Signs of media n sternotomy. The mediastinal silhouette is unremarkable for technique. XR/XR chest 1V portable [id number] IMPRESSION: 1. Right-sided PICC line ending in the lower one third of the SVC in good posit ion. 2. Chronic interstitial changes noted. No acute process. 3. Mild cardiac enlargement unchanged.
[2021-12-21 11:15] VITALS: BP 129/65; PULSE 97; RESP 18; TEMP 36.1; O2SAT 94
--- NOTE | 2021-12-21 12:00 | PC.NURSE ---
Double lumen PICC placed to right upper arm without difficulty. Pt tolerated well. Pt to follow up with oncology on Friday for dressing change.
== END ==
LOC: OPS 11:10 → GILAB 11:12
PROVIDERS: PCP Internal Medicine; Visit Provider Nurse Practitioner Family
DX: Z45.2 Encounter for adjustment and management of vascular access device (principal)
CPT/HCPCS: 36569; 71045

== ENCOUNTER 2022-01-09 15:43 | Inpatient (IN) | payer MEDICARE, OTHER, SELFPAY ==
[2022-01-09] VITALS (12 sets, daily range): BP systolic 103–169; BP diastolic 56–84; PULSE 73–95; RESP 16–20; TEMP 36.4–36.5; O2SAT 93–97; BMI 29.1
--- NOTE | 2022-01-09 16:22 | ED_ITS ---
HPI - General Adult General: Chief complaint: Abdominal Pain Stated complaint: ABd pains, lower back pain Time Seen by Provider: 01/09/22 16:21 History of Present Illness: Patient is a 76-year-old male with a history of appendectomy, bladder cancer currently on chemoradiation treatments followed by Dr. Aguirre presenting to emergency room with complaints of diffuse abdominal pain and dysuria. Patient tells me that yesterday around midnight he woke up in the [place] with diffuse abdominal pain. In this, patient reports symptoms of dysuria for the last 2 days. Patient denies any nausea/vomiting, fever/chills. Patient reports chronic flank pain. For the last 2 weeks, patient has had shortness of breath. Patient's last chemo treatment was on a 08/2021. Patient also underwent radiation treatment 8 01/2022. Patient denies any gross hematuria, penile discharge, or history of kidney stones. Patient denies any cough, runny nose, sore throat, fever or chills. Onset:2 days ago Duration:2 meraz Location:home Severity:moderate Associated symptoms: Deny chest pain, dyspnea, nausea, rash, palpitations or vomiting Review of Systems Const: Denies: fever(s) or chills Eyes: Denies: change in vision ENMT: Denies: mouth pain Card: Denies: chest pain or palpitations Resp: Denies: dyspnea or non-productive cough GI: Reports: abdominal pain (+diffuse abd pain); Denies: nausea, vomiting or diarrhea : Reports: dysuria (+Dysuria x 2 days) Musc: Denies: extremity pain Skin/Breast: Denies: rash or new lesions Neuro: Denies: weakness in extremities Psych: Reports: other (Normal mood) Ajit/Lymph: Denies: easy bruising PFSH ED PFSH: Medical History (Updated 01/10/22 @ 12:20 by Emerson Katz MD) A-fib Bladder cancer Bladder mass History of Young's esophagus History of COPD History of deafness History of dysphagia History of heart failure History of low back pain Hx of aneurysm Status post AAA repair Hx of cardiac murmur Hx of chronic arthritis Hx of coronary atherosclerosis Hx of emphysema Hx of gastroesophageal reflux (GERD) Hx of hyperlipidemia Surgical History (Updated 01/10/22 @ 12:20 by Emerson Katz MD) History of toe surgery RIGHT SIDE BIG TOE REMOVED Hx of appendectomy Hx of CABG Hx of esophagogastroduodenoscopy Hx of foot surgery Status post surgical removal and fulguration of bladder neoplasm Family History Father , AT AGE 55 Heart attack Mother , AT AGE 67 Lung disease Other CAD (coronary artery disease) Hyperlipidemia Denies family history of Diabetes Clotting disorder Dementia Psychiatric illness Chronic kidney disease (CKD) Suicide Anesthesia complication Bleeding disorder Hypertension Stroke Social History Smoking and tobacco status: former smoker Alcohol intake: never Marital status: Current occupational status: retired History of recent travel: No Physical Exam Const: COMMON NORMALS: alert HENMT: COMMON NORMALS: atraumatic HEAD & SCALP: atraumatic MOUTH: moist mucous membranes not abnormal Eye: COMMON NORMALS: EOMs intact bilaterally and conjunctivae normal CONJUNCTIVA: Yes conjunctivae normal Neck/C-Spine: COMMON NORMALS: full ROM and supple Resp: COMMON NORMALS: normal respiratory effort and clear to auscultation bilaterally AUSCULTATION: clear to auscultation bilaterally Cardio: COMMON NORMALS: regular rate RATE: regular rate GI: COMMON NORMALS: Soft to palpation PALPATION: Yes Soft to palpation OTHER: +Moderate diffuse abd tenderness to palpation. NO guarding rebound, guarding, rigidity. +mild b/l CVA tenderness to percussion. Neg Donovan/Neg McBurney's point tenderness, no suprabupic tenderness to palpation. Extremity: COMMON NORMALS: full ROM Neuro: SENSORIUM/ORIENTATION: Yes alert MOTOR EXAM: No Abnormal motor strength present and Other motor observations present (no focal motor deficits) Psych: COMMON NORMALS: speech normal SPEECH: Yes normal speech MOOD & AFFECT: Yes euthymic mood Course Vital Signs: Vital signs: Vital Signs Temperature 98.2 F 01/10/22 15:11 Pulse Rate 77 01/10/22 15:11 Respiratory Rate 15 01/10/22 15:11 Blood Pressure 144/67 01/10/22 15:11 Pulse Oximetry 96 01/10/22 14:08 Oxygen Delivery Me thod 01/10/22 15:11 MDM - General Adult Medical Decision Making 76-year-old male with history of bladder cancer on chemoradiation treatment, appendectomy presenting to the emergency room with complaints of diffuse abdominal pain and dysuria for the last 2 days. On physical exam, patient is hemodynamic stable. Patient has moderate tenderness palpation diffusely in the abdomen with CVA tenderness bilaterally. No guarding or rebound tenderness. Patient is noted to have white count 9.9. Patient is not neutropenic. UA showed UTI with nitrate positive bacteria. CT abdomen pelvis shows enteritis versus early/partial small bowel function. Discussed case with Dr. Gillette who recommended p.o. challenge and patient in the ER. Patient held liquid but reports significant abdominal pain while observed. Patient has not had any fla tus or bowel movement. It is unclear at this point time whether patient has radiation-induced strictures/adhesions. Patient will need observation. Patient received ceftriaxone metronidazole in the ER. Patient received IVF. I discussed case with Dr. Ruiz who will admit patient for observation. Disposition: Admission Lab Data : 01/10/22 02:47 01/10/22 02:47 Radiology Impressions Abdomen/Pelvis CT 01/09/22 16:22 IMPRESSION: 1. Findings nonspecific enteritis involving the terminal ileum with developing bowel distention which may represent some early or partial small bowel obstruction. 2. Stable appearance of abdominal aortic aneurysm and distal aorta 3. Other findings as described above. COMMENTS: Consistent with the [employer]'s Incidental Findings Committee white paper (J Am Kelton Radiol 2018): Any incidental renal lesion less than 1 cm or classified as too small to characterize, or any incidental cystic renal lesion characterized as simple-appearing, is likely benign. No follow-up imaging is recommended for these lesions per consensus recommendations based on imaging criteria. KUB X-Ray 01/10/22 04:00 IMPRESSION: Nonspecific mild bowel distention. Findings may be seen with ileus or obstruction. Laboratory Results WBC 9.9 10^3/uL (4.0-10.0) 01/09/22 16:38 RBC 4.41 10^6/uL (4.1-5.3) 01/09/22 16:38 Hgb 13.4 g/dL (11.7-16.6) 01/09/22 16:38 Hct 40.8 % (42.0-52.0) L 01/09/22 16:38 MCV 92.5 fl (80-94) 01/09/22 16:38 MCH 30.4 pg (28.0-34.0) 01/09/22 16:38 MCHC 32.8 g/dL (30.0-36.0) 01/09/22 16:38 RDW 18.1 % (12.1-15.1) H 01/09/22 16:38 Plt Count 151 10^3/cmm (130-400) 01/09/22 16:38 MPV 9.0 fL (7.4-10.4) 01/09/22 16:38 Neut % (Auto) 82.5 % 01/09/22 16:38 Lymph % (Auto) 6.7 % 01/09/22 16:38 [place] % (Auto) 7.5 % 01/09/22 16:38 Eos % (Auto) 1.7 % 01/09/22 16:38 Baso % (Auto) 0.3 % 01/09/22 16:38 Neut # (Auto) 8.15 10^3/uL (1.8-7.7) H 01/09/22 16:38 Lymph # (Auto) 0.7 10^3/uL (0.8-4.8) L 01/09/22 16:38 [place] # (Auto) 0.7 10^3/uL (0.2-0.9) 01/09/22 16:38 Eos # (Auto) 0.2 10^3/uL (0.0-0.8) 01/09/22 16:38 Baso # (Auto) 0.0 10^3/uL (0.0-0.1) 01/09/22 16:38 Nucleated RBC % (auto) 0 % 01/09/22 16:38 Nucleated RBCs # 0.0 /100WBC 01/09/22 16:38 PT 14.20 SECONDS (12.1-14.9) 01/09/22 16:38 INR 1.07 (0.8-1.2) 01/09/22 16:38 Sodium 138 mmol/L (136-145) 01/09/22 16:38 Potassium 4.1 mmol/L (3.5-5.1) 01/09/22 16:38 Chloride 100 mmol/L (98-107) 01/09/22 16:38 Carbon Dioxide 25 mmol/L (22-29) 01/09/22 16:38 Anion Gap 17.1 (5-19) 01/09/22 16:38 BUN 26 mg/dL (8-23) H 01/09/22 16:38 Creatinine 1.2 mg/dL (0.7-1.2) 01/09/22 16:38 GFR Calculation Not Reportable 01/09/22 16:38 Glucose 119 mg/dL (65-115) H 01/09/22 16:38 Estimat Average Glucose 134 01/09/22 16:38 Hemoglobin A1c 6.3 % (4.0-6.0) H 01/09/22 16:38 Calculated Osmolality 292 mOsm/kg (285-295) 01/09/22 16:38 Lactate 1.8 mmol/L (0.5-2.2) 01/09/22 16:38 Calcium 9.7 mg/dL (8.5-10.5) 01/09/22 16:38 Total Bilirubin 0.3 mg/dL (0.15-1.2) 01/09/22 16:38 AST 46 U/L (0-40) H 01/09/22 16:38 ALT 102 U/L (0-41) H 01/09/22 16:38 Alkaline Phosphatase 82 U/L (40-130) 01/09/22 16:38 Total Protein 7.2 g/dL (6.6-8.7) 01/09/22 16:38 Albumin 4.3 g/dL (3.5-5.2) 01/09/22 16:38 Globulin 2.9 g/dL (1.3-4.6) 01/09/22 16:38 Lipase 23 U/L (13-60) 01/09/22 16:38 Procalcitonin 0.07 ng/mL (0-0.5) 01/09/22 16:38 TSH 1.61 uIU/mL (0.27-4.20) 01/09/22 16:38 Urine Color [place] (Yellow) 01/09/22 18:00 Urine Appearance Clear (CLEAR) 01/09/22 18:00 Urine pH 5 (5-7) 01/09/22 18:00 Ur Specific [place] 1.020 (1.005-1.030) 01/09/22 18:00 Urine Protein 1+ (Negative) H 01/09/22 18:00 Urine Glucose (UA) Norm (Normal) 01/09/22 18:00 Urine Ketones Negative (Negative) 01/09/22 18:00 Urine Blood 2+ (Negative) H 01/09/22 18:00 Urine Nitrate Positive (Negative) H 01/09/22 18:00 Urine Bilirubin 1+ (Negative) H 01/09/22 18:00 Urine Urobilinogen 1 mg/dL (Negative) H 01/09/22 18:00 Ur Leukocyte Esterase Trace (Negative) H 01/09/22 18:00 Urine RBC 5-10 /hpf (0-2) H 01/09/22 18:00 Urine WBC 0-4 /hpf (0-5) H 01/09/22 18:00 Ur Squamous Epith Cells 0-4 /hpf (0-5) H 01/09/22 18:00 Amorphous Sediment Not Reportable 01/09/22 18:00 Urine Bacteria None /hpf (NONE) 01/09/22 18:00 Imaging Data Other Imaging: Radiologist's impression: [facility] [address] [address] Scan Report Signed Patient: Fernando Lowe Unit #: [id number] : 1945 Age/Sex: 76 / M ADM Date: 01/09/22 Loc: ER Room/Bed: Attending Dr: Ordering Provider/Ordering MD: Quin Alcantar MD Date of Service: 01/09/22 Procedure(s): CT abdomen pelvis w con* [id number] Accession Number(s): [id number] Report Number: [id number] PROCEDURE INFORMATION: Exam: CT Abdomen And Pelvis With Contrast Exam date and time: 01/09/2022 4:56 PM Age: 76 years old Clinical indication: Abdominal pain; Generalized; Prior surgery; Surgery date: 6+ months; Surgery type: Appx, aaa, cabg; Patient HX: Patient just completed chemo and radiation treatment for bladder CA, has mid abdomen shooting type pain that began this a. M. ; Additional info: Abd pain TECHNIQUE: Imaging protocol: Computed tomography of the abdomen and pelvis with contrast. Radiation optimization: All CT scans at this facility use at least one of these dose optimization techniques: automated exposure control; mA and/or kV adjustment per patient size (includes targeted exams where dose is matched to clinical indication); or iterative reconstruction. Contrast material: OMNIPAQUE 350; Contrast volume: 80 ml; Contrast route: INTRAVENOUS (IV);? COMPARISON: CT abdomen pelvis w con* [id number] 12/31/2021 3:36 PM RADIATION DOSE METRICS: Total DLP (mGy-cm): 1090.23 FINDINGS: Lungs: There are emphysematous changes and interstitial fibrosis or scarring at the lung bases not significantly changed from the previous exams. Liver: There is no focal abnormality within the liver. Gallbladder and bile ducts: Normal. No calcified stones. No ductal dilation. Pancreas: The pancreas is normal. Spleen: The spleen is normal. Adrenal glands: The adrenal glands are normal. Kidneys and ureters: There are multiple simple renal cysts. The benign-appearing simple renal cortical cysts are not changed. There is no evidence of hydronephrosis. There is no evidence of renal or ureteral calcifications. Stomach and bowel: There is no evidence of colitis/diverticulitis. There are fluid-filled distended loops of mostly distal small bowel and there is mural thickening and narrowing of the distal ileum consistent with nonspecific enteritis. The enteritis is not changed from 12/31/2021 but the developing bowel obstruction is a new finding. Appendix: Not identified Intraperitoneal space: There is no evidence of free intraperitoneal fluid. Vasculature: There is a 4.4 x 5.5 cm sized fusiform aneurysm of the upper abdominal aorta at the level of the SMA and renal arteries unchanged from 12/31/2021. There is mural thrombus within this aneurysm not significantly changed. The celiac, SMA, and renal arteries are patent. Proximal inferior mesenteric artery is stenotic not changed from previous. There is tortuosity of the distal abdominal aorta not significantly changed compared with noncontrast examination 09/20/2021. 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 The appearance of the distal abdominal aorta is unchanged. Lymph nodes: There is no evidence of lymphadenopathy. Urinary bladder: There is mild thickening of the urinary bladder wall not significantly changed compared with 12/31/2021. Please correlate for any clinical signs or symptoms of urinary tract infection. The suspected bladder mass demonstrated on 08/31/2021 is not presently identified. Reproductive: Unremarkable as visualized. Bones/joints: Chronic L2 compression fracture not significantly changed. Soft tissues: There are bilateral inguinal hernias containing only fat. There are bilateral inguinal hernias containing only fat. CT/CT abdomen pelvis w con* [id number] IMPRESSION: 1. Findings nonspecific enteritis involving the terminal ileum with developing bowel distention which may represent some early or partial small bowel obstruction. 2. Stable appearance of abdominal aortic aneurysm and distal aorta 3. Other findings as described above. ? COMMENTS: Consistent with the [employer]'s Incidental Findings Committee white paper (J Am Kelton Radiol 2018): Any incidental renal lesion less than 1 cm or classified as too small to characterize, or any incidental cystic renal lesion characterized as simple-appearing, is likely benign. No follow-up imaging is recommended for these lesions per consensus recommendations based on imaging criteria. ? Dictated By: Hunter Inman Signed By: Hunter Inman Signed Date/Time: 01/09/221751 DD/ 55 Discharge Plan Discharge Patient Disposition: Admitted As Inpatient Admit Provider: Augustin Ruiz Clinical Impression: Abdominal pain, Dysuria, Partial small bowel obstruction, Immunocompromised, Acute UTI Condition: Stable Coding Level of Care Code ED Electric Motor Analyst for Chg Fwd Exam Comprehensive
[2022-01-09 16:51] LABS: Basophils % 0.3 %; Eosinophils # 0.2 10^3/uL (0.0-0.8); Eosinophils % 1.7 %; Hematocrit 40.8 % (42.0-52.0); Hemoglobin 13.4 g/dL (11.7-16.6); Lymphocytes # 0.7 10^3/uL (0.8-4.8); Lymphocytes % 6.7 %; Mean Corpuscular HGB Conc 32.8 g/dL (30.0-36.0); Mean Corpuscular Hemoglobin 30.4 pg (28.0-34.0); Mean Corpuscular Volume 92.5 fl (80-94); Monocytes # 0.7 10^3/uL (0.2-0.9); Monocytes % 7.5 %; Neutrophils # 8.15 10^3/uL (1.8-7.7); Neutrophils % 82.5 %; Nucleated Red Blood Cells % 0 %; Platelet Count 151 10^3/cmm (130-400); Red Blood Count 4.41 10^6/uL (4.1-5.3); Red Cell Distribution Width 18.1 % (12.1-15.1); White Blood Count 9.9 10^3/uL (4.0-10.0)
[2022-01-09 17:08] LABS: Lactate (Lactic Acid level) 1.8 mmol/L (0.5-2.2)
[2022-01-09 17:16] LABS: Alanine Aminotransferase 102 U/L (0-41); Albumin Level 4.3 g/dL (3.5-5.2); Alkaline Phosphatase 82 U/L (40-130); Anion Gap 17.1 (5-19); Aspartate Amino Transferase 46 U/L (0-40); Blood Urea Nitrogen 26 mg/dL (8-23); Calcium 9.7 mg/dL (8.5-10.5); Carbon Dioxide 25 mmol/L (22-29); Chloride 100 mmol/L (98-107); Globulin 2.9 g/dL (1.3-4.6); Glucose 119 mg/dL (65-115); Lipase 23 U/L (13-60); Osmolality Calculated 292 mOsm/kg (285-295); Potassium 4.1 mmol/L (3.5-5.1); Sodium 138 mmol/L (136-145); Total Bilirubin 0.3 mg/dL (0.15-1.2); Total Protein 7.2 g/dL (6.6-8.7)
[2022-01-09] MEDS: morphine 4 mg/mL SDV 1 mL IVP ×2 (17:22→23:00)
[2022-01-09] MEDS: sodium chloride 0.9% 1,000 ML 999 ML IV (17:23)
[2022-01-09] MEDS: iohexol 350 mg/mL 100 mL Btl IV (17:25)
[2022-01-09 18:35] LABS: Glucose Urine UA Norm (Normal); Ketones Urine Negative (Negative); Protein Urine 1+ (Negative); Urine Appearance Clear (CLEAR); Urine Color Orange (Yellow); pH Urine 5 (5-7)
[2022-01-09 18:36] LABS: Add Urine Microscopic? YES; Bilirubin Urine 1+ (Negative); Blood Urine 2+ (Negative); Leukocyte Esterase Urine Trace (Negative); Nitrate Urine Positive (Negative); Urobilinogen Urine 1 mg/dL (Negative)
[2022-01-09 18:43] LABS: Add Urine Culture? No; Squamous Epithelial Cell Urine 0-4 /hpf (0-5); WBC Urine 0-4 /hpf (0-5)
--- NOTE | 2022-01-09 19:48 | PM.HP ---
Providers/Chief Complaint Primary Care Provider: Oscar Mcmanus DO Chief Complaint: ABd pains, lower back pain History of Present Illness Fernando Lowe is a 76 year old male with a past medical history of CABG, atrial fibrillation, bladder cancer, COPD, heart failure, history of abdominal aortic aneurysm repair, GERD, hyperlipidemia, who presents [facility] due to 24-hour history of abdominal pain, abdominal distention, lack of bowel movements. He denies any nausea, any vomiting, no fevers, no chills. He denies any history of food poisoning. He has been on antibiotics, Cipro for recurrent UTI. No diarrhea complaints. No history of C. difficile. He tells me that last night he developed abdominal pain abdominal distention, and since then, his symptoms have fluctuated, he is able to keep down solids or liquids, but he has not passed any gas and his abdominal distention and abdominal pain have persisted. On 01/01/2022 he received radiation therapy for his bladder cancer. Review of Systems Const: Denies: fever(s) Card: Denies: chest pain Resp: Denies: dyspnea GI: Reports: abdominal pain and bloating; Denies: nausea, vomiting, diarrhea or constipation : Reports: dysuria Medications/Allergies Home Medications Medication Instructions Recorded Confirmed Last Taken Type acetaminophen 300 mg-codeine 30 mg 1 tab PO BID 11/30/19 01/09/22 01/09/22 History tablet gabapentin 600 mg tablet 1,200 mg PO TID 11/30/19 01/09/22 01/09/22 History metformin 500 mg tablet,extended 500 mg PO DAILY 11/30/19 01/09/22 01/09/22 History release 24 hr pantoprazole 40 mg tablet,delayed 40 mg PO BID 11/30/19 01/09/22 01/09/22 History release terazosin 10 mg capsule 10 mg PO DAILY 11/30/19 01/09/22 01/09/22 History atorvastatin 40 mg tablet 40 mg PO DAILY #90 tabs 06/13/21 01/09/22 01/09/22 Rx furosemide 40 mg tablet (Lasix) 40 mg PO DAILY #90 tabs 06/13/21 01/09/22 01/09/22 Rx potassium chloride 20 mEq 20 meq PO DAILY #90 tabs 08/20/21 01/09/22 01/09/22 Rx tablet,extended release ciprofloxacin HCl 500 mg tablet 500 mg PO BID #20 tabs 12/31/21 01/09/22 01/09/22 Rx metronidazole 250 mg tablet 250 mg PO TID #30 tabs 12/31/21 01/09/22 01/09/22 Rx phenazopyridine 97.5 mg tablet 97.5 mg PO DAILY 01/09/22 01/09/22 01/09/22 History tamsulosin 0.4 mg capsule 0.4 mg PO BEDTIME 01/09/22 01/09/22 01/08/22 History Allergies Allergy/AdvReac Type Severity Reaction Status Date / Time oxycodone [From Percocet] Allergy Unknown went crazy Verified 01/09/22 17:28 PFSH Acute PFSH: Medical History A-fib Bladder cancer Bladder mass History of Young's esophagus History of COPD History of deafness History of dysphagia History of heart failure History of low back pain Hx of aneurysm Status post AAA repair Hx of chronic arthritis Hx of coronary atherosclerosis Hx of emphysema Hx of gastroesophageal reflux (GERD) Hx of hyperlipidemia Surgical History History of toe surgery RIGHT SIDE BIG TOE REMOVED Hx of appendectomy Hx of CABG Hx of esophagogastroduodenoscopy Hx of foot surgery Family History Father , AT AGE 55 Heart attack Mother , AT AGE 67 Lung disease Other CAD (coronary artery disease) Hyperlipidemia Denies family history of Diabetes Clotting disorder Dementia Psychiatric illness Chronic kidney disease (CKD) Suicide Anesthesia complication Bleeding disorder Hypertension Stroke Social History Smoking and tobacco status: former smoker Alcohol intake: never Marital status: Current occupational status: retired History of recent travel: No Vitals/I&O/Wt Last Vital Signs Temp 97.5 F L 01/09/22 16:11 Pulse 76 01/09/22 17:46 Resp 20 H 01/09/22 17:22 BP 134/67 01/09/22 17:46 Pulse Ox 96 01/09/22 17:46 O2 Del Method 01/09/22 17:46 Weight last 48 hrs Weight 111.584 kg Physical Exam Const: COMMON NORMALS: no acute distress and patient oriented x3 HENMT: COMMON NORMALS: normocephalic HEAD & SCALP: normocephalic Eye: COMMON NORMALS: Equal, round and reactive pupils present and EOMs intact bilaterally Neck/C-Spine: COMMON NORMALS: no JVD Resp: COMMON NORMALS: normal respiratory effort, No retractions, No use of accessory muscles and clear to auscultation bilaterally AUSCULTATION: clear to auscultation bilaterally Cardio: COMMON NORMALS: no JVD, regular rate, regular rhythm, S1 normal heart sound present and S2 normal heart sound present RATE: regular rate RHYTHM: regular rhythm HEART SOUNDS: S1 normal heart sound present and S2 normal heart sound present GI: PALPATION: Yes Soft to palpation and Yes No hepatosplenomegaly present OTHER: Abdomen soft, distended, has bowel sounds in all quadrants, no guarding, no rebound, no rigidity, does have mild diffuse tenderness Extremity: COMMON NORMALS: capillary refill normal, no clubbing, cyanosis or edema, no calf tenderness and no pedal edema Neuro: COMMON NORMALS: patient oriented x3, CN's II-XII intact bilaterally, moves all extremities and no focal motor deficits Psych: COMMON NORMALS: mental status grossly normal Data : 01/09/22 16:38 01/09/22 16:38 Micro: Microbiology 01/09/22 16:42 Blood Culture - Preliminary Blood SPECIMEN COLLECTED 01/09/22 16:38 Blood Culture - Preliminary Blood SPECIMEN COLLECTED A&P Assessment and plan (1) Abdominal pain: Status: Acute (2) Dysuria: Status: Acute (3) Partial small bowel obstruction: Status: Acute (4) Hx of CABG: Status: Acute (5) Hx of hyperlipidemia: Status: Acute (6) Bladder cancer: Status: Acute Plan Abdominal pain CT scan Stomach and bowel: There is no evidence of colitis/diverticulitis. There are fluid-filled distended loops of mostly distal small bowel and there is mural thickening and narrowing of the distal ileum consistent with nonspecific enteritis. The enteritis is not changed from 12/31/2021 but the developing bowel obstruction is a new finding. Appendix: Not identified Given his symptomatology abdominal distention, lack of stooling, concerning for developing bowel obstruction versus ileus versus possible stricture from radiation Plan -N.p.o. 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 Detrusor muscle identified with invasion.? Clinical T2a or T2b, NX, MX -Radiation therapy01/01/2022 History of abdominal aortic aneurysm repair CT scan shows ntraperitoneal space: There is no evidence of free intraperitoneal fluid. Vasculature: There is a 4.4 x 5.5 cm sized fusiform aneurysm of the upper abdominal aorta at the level of the SMA and renal arteries unchanged from 12/31/2021. There is mural thrombus within this aneurysm not significantly changed. The celiac, SMA, and renal arteries are patent. Proximal inferior mesenteric artery is stenotic not changed from previous. There is tortuosity of the distal abdominal aorta not significantly changed compared with noncontrast examination 09/20/2021. 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 The appearance of the distal abdominal aorta is unchanged. Needs to follow-up with vascular surgery as outpatient UTI, Rocephin Attestations Medical Necessity Statement*: Patient requires hospitalization, inpatient, greater than 2 midnights, for abdominal pain, abdominal distention concerning for developing bowel obstruction, UTI Coding Level of Care Code Acute Net Manager for Chg Fwd Diagnoses Abdominal pain R10.9 Dysuria R30.0 Partial small bowel obstruction K56.600 Hx of CABG Z95.1 Hx of hyperlipidemia Z86.39 Bladder cancer C67.9
[2022-01-09] MEDS: cefTRIAXone 1,000 MG in sodium chloride 0.9% (plus) 50 ML 100 MG IV (20:27)
[2022-01-09] MEDS: metroNIDAZOLE IV 500 MG/100 ML PREMIX 100 MG IV (20:40)
[2022-01-09 20:55] LABS: INR 1.07 (0.8-1.2)
[2022-01-09 21:12] LABS: Procalcitonin 0.07 ng/mL (0-0.5)
[2022-01-09 22:49] LABS: Thyroid Stimulating Hormone 1.61 uIU/mL (0.27-4.20)
[2022-01-09] MEDS: sodium chloride 0.9% 1,000 ML 100 ML IV (22:58)
[2022-01-09] MEDS: enoxaparin 40 mg/0.4 mL Syringe SUBCUT (22:58)
[2022-01-09] MEDS: pantoprazole 40 mg SDV IVP (22:59)
[2022-01-09] MEDS: gabapentin 400 mg Capsule 1200 MG PO (23:00)
[2022-01-09 23:32] LABS: Estmated Average Glucose 134; Hemoglobin A1C 6.3 % (4.0-6.0)
[2022-01-10] VITALS (12 sets, daily range): BP systolic 99–144; BP diastolic 64–72; PULSE 60–79; RESP 14–20; TEMP 36.4–37.3; O2SAT 91–98
[2022-01-10 00:11] LABS: Glucose Point of Care 120 mg/dL (70-110)
[2022-01-10 03:10] LABS: Basophils % 0.4 %; Eosinophils # 0.2 10^3/uL (0.0-0.8); Eosinophils % 2.2 %; Hematocrit 35.4 % (42.0-52.0); Hemoglobin 11.5 g/dL (11.7-16.6); Lymphocytes # 0.7 10^3/uL (0.8-4.8); Lymphocytes % 8.9 %; Mean Corpuscular HGB Conc 32.5 g/dL (30.0-36.0); Mean Corpuscular Hemoglobin 30.3 pg (28.0-34.0); Mean Corpuscular Volume 93.2 fl (80-94); Mean Platelet Volume 9.2 fL (7.4-10.4); Monocytes # 0.7 10^3/uL (0.2-0.9); Monocytes % 8.3 %; Neutrophils # 6.33 10^3/uL (1.8-7.7); Neutrophils % 78.2 %; Nucleated Red Blood Cells % 0 %; Platelet Count 122 10^3/cmm (130-400); Red Cell Distribution Width 17.9 % (12.1-15.1); White Blood Count 8.1 10^3/uL (4.0-10.0)
[2022-01-10 03:45] LABS: Alanine Aminotransferase 78 U/L (0-41); Albumin Level 3.5 g/dL (3.5-5.2); Alkaline Phosphatase 72 U/L (40-130); Anion Gap 14.9 (5-19); Aspartate Amino Transferase 35 U/L (0-40); Blood Urea Nitrogen 24 mg/dL (8-23); C Reactive Protein 7.3 mg/L (0.0-4.9); Calcium 8.7 mg/dL (8.5-10.5); Carbon Dioxide 27 mmol/L (22-29); Chloride 103 mmol/L (98-107); Glucose 108 mg/dL (65-115); Magnesium 1.8 mg/dL (1.7-2.3); Osmolality Calculated 297 mOsm/kg (285-295); Potassium 3.9 mmol/L (3.5-5.1); Sodium 141 mmol/L (136-145); Total Bilirubin 0.3 mg/dL (0.15-1.2); Total Protein 5.5 g/dL (6.6-8.7)
--- NOTE | 2022-01-10 04:00 | XRR_ITS ---
PROCEDURE INFORMATION: Exam: XR Abdomen Exam date and time: 01/10/2022 5:00 AM Age: 76 years old Clinical indication: Bloating; Prior surgery; Surgery type: Bladder. Appy. Patient HX: Continuted abd distention. ; Additional info: Abdominal distention TECHNIQUE: Imaging protocol: Radiologic exam of the abdomen. Views: Frontal supine view of the abdomen. 1 View. COMPARISON: CT abdomen pelvis w con* [id number] 01/09/2022 4:56 PM FINDINGS: Gastrointestinal tract: Nonspecific mild bowel distention. Findings may be seen with ileus or obstruction. Organs: Contrast is noted in the bladder from previous administration. Bones/joints: Unremarkable. XR/XR KUB portable [id number] IMPRESSION: Nonspecific mild bowel distention. Findings may be seen with ileus or obstruction.
[2022-01-10 06:13] LABS: Glucose Point of Care 120 mg/dL (70-110)
[2022-01-10] MEDS: atorvastatin 40 mg Tablet PO (09:28)
[2022-01-10] MEDS: terazosin 5 mg Capsule 10 MG PO (09:28)
[2022-01-10] MEDS: gabapentin 400 mg Capsule 1200 MG PO ×3 (09:28→20:53)
[2022-01-10] MEDS: magnesium hydroxide 30 mL UDC PO (09:35)
--- NOTE | 2022-01-10 10:34 | PC.CHAP ---
Pastoral Care Encounter/Spiritual Assessment Type of Contact [] Declined psychologist military personnel visit [] Patient/Family/Request visit [] Outpatient visit [x] Follow-up visit [] Physician referral [] Code/Alert [] Routine visit [] Staff referral [] Actively dying [] Patient sleeping [] Family support [] [] Out of room [] Palliative care [] [] Receiving care in room [] Pre-surgical visit [] Trauma [] Long length of stay [] ICU visit [] Other: Relational/Emotional Strength [] Patient feels connected with others/family/visitors/staff [] Distress [] Loneliness/isolation [] Abandonment Spirituality of Patient [] Person of Roxana [] Attends Jewish of their Roxana [] Believes in Prayer [] Reads Bible or Alevism materials [] There are Spiritual issues to be addressed Tire Service Supervisor Interventions [] Prayer [] Active listening [] Non-anxious presence [] Spiritual/emotional support [] Crisis/trauma care [] Spiritual counseling [] Bereavement support [] Provided bereavement packet [] Provided Bible/devotional materials [] Provided toy/stuffed animal, coloring book to patient or family member [] Provided Communion [] Anointing/[place] [] Salvation [] Completed spiritual assessment [] Other: Impact on Illness or Injury [] Angry [] Fearful [] Anxious [] Often cries [] Exhaustion [] Unable to work [] Unable to attend jain [] Unable to walk/stand [] Unable to read [] Unable to drive [] Unable to eat/drink [] Unable to sleep [] Unable to be with family [] Patient intubated [] Other: Summary Follow-up visit Time spent with patient 5 mins
[2022-01-10 11:02] LABS: Glucose Point of Care 129 mg/dL (70-110)
--- NOTE | 2022-01-10 12:18 | PM.PN ---
Subjective Subjective: This morning patient was seen in the [facility] room He was endorsing passage of flatus, he had a small bowel movement last night as well Abdomen soft Advance his diet to clear liquid not Complaining of any abdominal pain Vitals/I&O/Wt Last Vital Signs Temp 97.9 F 01/10/22 12:00 Pulse 79 01/10/22 12:00 Resp 16 01/10/22 12:00 BP 134/72 01/10/22 12:00 Pulse Ox 98 01/10/22 12:00 O2 Del Method 01/10/22 12:00 01/09/22 01/10/22 01/10/22 22:59 06:59 14:59 Intake Total 1050 / 1050 0 / 1050 Output Total 0 / 0 100 / 100 Balance 1050 / 1050 0 / 1050 -100 / -100 Weight last 48 hrs Weight 111.584 kg Physical Exam Narrative: Bowel sound present Soft abdomen Nondistended Patient is pleasant and cooperative S1, S2 On room air Awake and alert Nonfocal neuro exam Data : 01/10/22 02:47 01/10/22 02:47 Micro: Microbiology 01/09/22 16:42 Blood Culture - Preliminary Blood SPECIMEN COLLECTED 01/09/22 16:38 Blood Culture - Preliminary Blood SPECIMEN COLLECTED A&P Assessment and plan (1) Abdominal pain: Status: Acute (2) Partial small bowel obstruction: Status: Acute (3) Immunocompromised: Status: Acute (4) A-fib: Status: Acute Qualifiers: Atrial fibrillation type: paroxysmal Qualified Code(s): I48.0 - Paroxysmal atrial fibrillation (5) Hx of CABG: Status: Acute (6) Bladder mass: Status: Acute (7) Bladder cancer: Status: Acute Plan Ileus versus small bowel obstruction Passing flatus Advance diet to clear liquid Had small bowel movement yesterday Replenish potassium Check magnesium Conservative management Patient is full code Currently doing well on room air A. fib without RVR Hematuria without drop in hemoglobin History of bladder cancer undergoing radiotherapy History of AAA repair DVT prophylaxis Lovenox Ceftriaxone has been added for possible UTI however no active symptoms No significant pyuria Continue normal saline at 100 mL/h for now Attestations Medical Necessity Statement*: Discharge in next 48 hours if clinically stable Coding Level of Care Code Acute Community Pharmacist for Chg Fwd Diagnoses Abdominal pain R10.9 Partial small bowel obstruction K56.600 Immunocompromised D84.9 A-fib I48.0 Atrial fibrillation type: paroxysmal Hx of CABG Z95.1 Bladder mass N32.89 Bladder cancer C67.9
[2022-01-10] MEDS: potassium chloride ER 20 mEq Tablet 40 MEQ PO (12:53)
[2022-01-10] MEDS: sodium chloride 0.9% 1,000 ML 100 ML IV (14:35)
[2022-01-10 17:29] LABS: Glucose Point of Care 114 mg/dL (70-110)
[2022-01-10] MEDS: cefTRIAXone 1,000 MG in sodium chloride 0.9% (plus) 50 ML 100 MG IV (17:39)
[2022-01-10] MEDS: pantoprazole 40 mg SDV IVP (20:52)
[2022-01-10] MEDS: enoxaparin 40 mg/0.4 mL Syringe SUBCUT (20:53)
[2022-01-10 21:18] LABS: Glucose Point of Care 115 mg/dL (70-110)
--- NOTE | 2022-01-10 22:16 | PC.NURSE ---
CHANGE PT CARE This nurse will now be pts care nurse for rest of the shift. Pt is resting in bed watching TV. Denies any needs
[2022-01-11] VITALS: BP 128/52; PULSE 66; RESP 20; TEMP 36.5; O2SAT 97
[2022-01-11] MEDS: sodium chloride 0.9% 1,000 ML 100 ML IV (01:10)
[2022-01-11 04:00] VITALS: BP 133/65; PULSE 53; RESP 18; TEMP 36.1; O2SAT 95
[2022-01-11 05:47] LABS: Basophils % 0.5 %; Eosinophils # 0.2 10^3/uL (0.0-0.8); Hematocrit 34.8 % (42.0-52.0); Hemoglobin 11.1 g/dL (11.7-16.6); Lymphocytes # 0.5 10^3/uL (0.8-4.8); Lymphocytes % 9.2 %; Mean Corpuscular HGB Conc 31.9 g/dL (30.0-36.0); Mean Corpuscular Hemoglobin 30.6 pg (28.0-34.0); Mean Corpuscular Volume 95.9 fl (80-94); Mean Platelet Volume 9.6 fL (7.4-10.4); Monocytes # 0.5 10^3/uL (0.2-0.9); Monocytes % 8.8 %; Neutrophils # 4.19 10^3/uL (1.8-7.7); Neutrophils % 75.5 %; Nucleated Red Blood Cells % 0 %; Platelet Count 163 10^3/cmm (130-400); Red Blood Count 3.63 10^6/uL (4.1-5.3); White Blood Count 5.6 10^3/uL (4.0-10.0)
[2022-01-11 06:00] VITALS: PULSE 59
[2022-01-11 06:15] LABS: Anion Gap 11.1 (5-19); Blood Urea Nitrogen 15 mg/dL (8-23); C Reactive Protein 7.8 mg/L (0.0-4.9); Calcium 8.5 mg/dL (8.5-10.5); Carbon Dioxide 26 mmol/L (22-29); Chloride 106 mmol/L (98-107); Glucose 97 mg/dL (65-115); Magnesium 1.9 mg/dL (1.7-2.3); Osmolality Calculated 289 mOsm/kg (285-295); Phosphorus 2.4 mg/dL (2.5-4.5); Potassium 4.1 mmol/L (3.5-5.1); Sodium 139 mmol/L (136-145)
[2022-01-11 06:48] LABS: Glucose Point of Care 111 mg/dL (70-110)
--- NOTE | 2022-01-11 06:53 | P.DS_ITS ---
Discharge Providers Date of Admission: 01/09/22 19:11 Date of Discharge: January 11, 2022 Attending Provider at Admission: Augustin Ruiz MD Attending Provider at Discharge: Emerson Katz MD Primary Care Provider: Oscar Mcmanus DO Diagnoses at Discharge Discharge Diagnosis (1) Abdominal pain: Status: Acute (2) Partial small bowel obstruction: Status: Acute (3) Immunocompromised: Status: Acute (4) A-fib: Status: Acute Qualifiers: Atrial fibrillation type: paroxysmal Qualified Code(s): I48.0 - Paroxysmal atrial fibrillation (5) Hx of CABG: Status: Acute (6) Bladder mass: Status: Acute (7) Bladder cancer: Status: Acute Reason for Visit Reason for Visit: ABd pains, lower back pain Hospital Course Hospital Course 76-year old male with history of malignancy currently undergoing radiotherapy, presented to the hospital for recurrent nausea vomiting he was diagnosed with partial bowel obstruction. He remained hemodynamically stable. Abdomen was soft, he was passing flatus, he had 3 bowel movements in the hospital, tolerated his clear liquid diet, his diet was advanced to GI soft, clinically patient improved within 24 hours with conservative management. NG tube was not placed. No significant electrolyte imbalance. Left bowel regimen at discharge, I will discontinue ciprofloxacin and Flagyl Physical Exam Narrative: Able toAlert Abdomen soft Able to walk on his own Currently on room air Nonfocal neuro exam Ordered GI soft diet Able to tolerate the diet Discharge Data Studies Completed and Pending Completed Studies During Hospitalization Category Date Time Status CT abdomen pelvis w con* [id number] Stat Cat Scan 01/09/22 16:22 Completed XR KUB portable [id number] Routine Exams 01/10/22 04:00 Completed Pending at discharge Category Date Time Status XR KUB portable [id number] Stat Exams 01/11/22 06:53 Ordered Blood Culture Stat Lab 01/09/22 16:42 Results C Reactive Protein AM LABS Lab 01/12/22 04:00 Ordered Magnesium AM LABS Lab 01/12/22 04:00 Ordered Phosphorus AM LABS Lab 01/12/22 04:00 Ordered Radiology Impressions Abdomen/Pelvis CT 01/09/22 16:22 IMPRESSION: 1. Findings nonspecific enteritis involving the terminal ileum with developing bowel distention which may represent some early or partial small bowel obstruction. 2. Stable appearance of abdominal aortic aneurysm and distal aorta 3. Other findings as described above. COMMENTS: Consistent with the [employer]'s Incidental Findings Committee white paper (J Am Kelton Radiol 2018): Any incidental renal lesion less than 1 cm or classified as too small to characterize, or any incidental cystic renal lesion characterized as simple-appearing, is likely benign. No follow-up imaging is recommended for these lesions per consensus recommendations based on imaging criteria. KUB X-Ray 01/10/22 04:00 IMPRESSION: Nonspecific mild bowel distention. Findings may be seen with ileus or obstruction. Laboratory Results WBC 5.6 10^3/uL (4.0-10.0) 01/11/22 05:03 RBC 3.63 10^6/uL (4.1-5.3) L 01/11/22 05:03 Hgb 11.1 g/dL (11.7-16.6) L 01/11/22 05:03 Hct 34.8 % (42.0-52.0) L 01/11/22 05:03 MCV 95.9 fl (80-94) H 01/11/22 05:03 MCH 30.6 pg (28.0-34.0) 01/11/22 05:03 MCHC 31.9 g/dL (30.0-36.0) 01/11/22 05:03 RDW 18.0 % (12.1-15.1) H 01/11/22 05:03 Plt Count 163 10^3/cmm (130-400) D 01/11/22 05:03 MPV 9.6 fL (7.4-10.4) 01/11/22 05:03 Neut % (Auto) 75.5 % 01/11/22 05:03 Lymph % (Auto) 9.2 % 01/11/22 05:03 [place] % (Auto) 8.8 % 01/11/22 05:03 Eos % (Auto) 4.0 % 01/11/22 05:03 Baso % (Auto) 0.5 % 01/11/22 05:03 Neut # (Auto) 4.19 10^3/uL (1.8-7.7) 01/11/22 05:03 Lymph # (Auto) 0.5 10^3/uL (0.8-4.8) L 01/11/22 05:03 [place] # (Auto) 0.5 10^3/uL (0.2-0.9) 01/11/22 05:03 Eos # (Auto) 0.2 10^3/uL (0.0-0.8) 01/11/22 05:03 Baso # (Auto) 0.0 10^3/uL (0.0-0.1) 01/11/22 05:03 Nucleated RBC % (auto) 0 % 01/11/22 05:03 Nucleated RBCs # 0.0 /100WBC 01/11/22 05:03 PT 14.20 SECONDS (12.1-14.9) 01/09/22 16:38 INR 1.07 (0.8-1.2) 01/09/22 16:38 Sodium 139 mmol/L (136-145) 01/11/22 05:03 Potassium 4.1 mmol/L (3.5-5.1) 01/11/22 05:03 Chloride 106 mmol/L (98-107) 01/11/22 05:03 Carbon Dioxide 26 mmol/L (22-29) 01/11/22 05:03 Anion Gap 11.1 (5-19) 01/11/22 05:03 BUN 15 mg/dL (8-23) 01/11/22 05:03 Creatinine 0.9 mg/dL (0.7-1.2) 01/11/22 05:03 GFR Calculation Not Reportable 01/11/22 05:03 Glucose 97 mg/dL (65-115) 01/11/22 05:03 POC Glucose 111 mg/dL (70-110) H 01/11/22 06:29 Estimat Average Glucose 134 01/09/22 16:38 Hemoglobin A1c 6.3 % (4.0-6.0) H 01/09/22 16:38 Calculated Osmolality 289 mOsm/kg (285-295) 01/11/22 05:03 Lactate 1.8 mmol/L (0.5-2.2) 01/09/22 16:38 Calcium 8.5 mg/dL (8.5-10.5) 01/11/22 05:03 Phosphorus 2.4 mg/dL (2.5-4.5) L 01/11/22 05:03 Magnesium 1.9 mg/dL (1.7-2.3) 01/11/22 05:03 Total Bilirubin 0.3 mg/dL (0.15-1.2) 01/10/22 02:47 AST 35 U/L (0-40) 01/10/22 02:47 ALT 78 U/L (0-41) H 01/10/22 02:47 Alkaline Phosphatase 72 U/L (40-130) 01/10/22 02:47 C-Reactive Protein 7.8 mg/L (0.0-4.9) H 01/11/22 05:03 Total Protein 5.5 g/dL (6.6-8.7) L D 01/10/22 02:47 Albumin 3.5 g/dL (3.5-5.2) 01/10/22 02:47 Globulin 2.0 g/dL (1.3-4.6) 01/10/22 02:47 Lipase 23 U/L (13-60) 01/09/22 16:38 Procalcitonin 0.07 ng/mL (0-0.5) 01/09/22 16:38 TSH 1.61 uIU/mL (0.27-4.20) 01/09/22 16:38 Urine Color [place] (Yellow) 01/09/22 18:00 Urine Appearance Clear (CLEAR) 01/09/22 18:00 Urine pH 5 (5-7) 01/09/22 18:00 Ur Specific [place] 1.020 (1.005-1.030) 01/09/22 18:00 Urine Protein 1+ (Negative) H 01/09/22 18:00 Urine Glucose (UA) Norm (Normal) 01/09/22 18:00 Urine Ketones Negative (Negative) 01/09/22 18:00 Urine Blood 2+ (Negative) H 01/09/22 18:00 Urine Nitrate Positive (Negative) H 01/09/22 18:00 Urine Bilirubin 1+ (Negative) H 01/09/22 18:00 Urine Urobilinogen 1 mg/dL (Negative) H 01/09/22 18:00 Ur Leukocyte Esterase Trace (Negative) H 01/09/22 18:00 Urine RBC 5-10 /hpf (0-2) H 01/09/22 18:00 Urine WBC 0-4 /hpf (0-5) H 01/09/22 18:00 Ur Squamous Epith Cells 0-4 /hpf (0-5) H 01/09/22 18:00 Amorphous Sediment Not Reportable 01/09/22 18:00 Urine Bacteria None /hpf (NONE) 01/09/22 18:00 Vitals Last Vital Signs Temp 97.0 F L 01/11/22 04:00 Pulse 59 L 01/11/22 06:00 Resp 18 01/11/22 04:00 BP 133/65 01/11/22 04:00 Pulse Ox 95 01/11/22 04:00 O2 Del Method 01/10/22 15:11 Discharge Plan Discharge Patient Disposition: Home Condition: Stable Prescriptions: Continued acetaminophen-codeine 300-30 mg tablet 1 tab PO BID metformin 500 mg tablet extended release 24 hr 500 mg PO DAILY gabapentin 600 mg tablet 1,200 mg PO TID terazosin 10 mg capsule 10 mg PO DAILY atorvastatin 40 mg tablet 40 mg PO DAILY Qty: 90 4RF potassium chloride 20 mEq tablet extended release 20 meq PO DAILY Qty: 90 4RF tamsulosin 0.4 mg Capsule 0.4 mg PO BEDTIME phenazopyridine 97.5 mg Tablet 97.5 mg PO DAILY Changed Lasix 40 mg tablet 20 mg PO DAILY PRN (Reason: edema) Qty: 90 4RF pantoprazole 40 mg tablet,delayed release (DR/EC) 40 mg PO DAILY Qty: 30 0RF Discontinued ciprofloxacin HCl 500 mg tablet 500 mg PO BID Qty: 20 0RF metronidazole 250 mg tablet 250 mg PO TID Qty: 30 0RF Discharge Orders: Discharge Order (Routine); Ordered 01/11/22 Ordered By: Emerson Katz Referrals: Oscar Mcmanus DO [Primary Care Provider] - 2 weeks Patient Instructions: Abdominal Pain (ED), Opioid Safety Discharge Attestations Time Spent in Discharge Care*: less than 30 min Quality Metrics Clinical Quality Measures [ No reported AMI, CVA or VTE this stay] Coding Level of Care Code Acute Chg FW DC note Diagnoses Abdominal pain R10.9 Partial small bowel obstruction K56.600 Immunocompromised D84.9 A-fib I48.0 Atrial fibrillation type: paroxysmal Hx of CABG Z95.1 Bladder mass N32.89 Bladder cancer C67.9
--- NOTE | 2022-01-11 06:53 | XRR_ITS ---
PROCEDURE INFORMATION: Exam: XR Abdomen Exam date and time: 01/11/2022 7:01 AM Age: 76 years old Clinical indication: Condition or disease; Intestinal condition; Other: Ileus; Prior surgery; Surgery type: Aneurysm; Patient HX: Abd soreness all over , HX of bladder cancer TECHNIQUE: Imaging protocol: Radiologic exam of the abdomen. Views: Frontal supine view of the abdomen. 1 View. COMPARISON: CR (ABDOMEN, ) 01/10/2022 5:00 AM FINDINGS: Gastrointestinal tract: No definite dilated bowel to strongly suggest obstruction. Bones/joints: No significant acute finding. Other findings: No definite abnormal masses or specific abnormal calcifications. XR/XR KUB portable [id number] IMPRESSION: 1. Nonspecific abdomen, no definite evidence of obstruction. 2. Other details discussed above.
[2022-01-11 08:00] VITALS: BP 144/72; PULSE 81; RESP 17; TEMP 36.8
[2022-01-11 08:22] LABS: Glucose Point of Care 113 mg/dL (70-110)
[2022-01-11] MEDS: atorvastatin 40 mg Tablet PO (09:02)
[2022-01-11] MEDS: gabapentin 400 mg Capsule 1200 MG PO (09:02)
[2022-01-11] MEDS: terazosin 5 mg Capsule 10 MG PO (09:02)
--- NOTE | 2022-01-11 10:56 | PC.CHAP ---
Pastoral Care Encounter/Spiritual Assessment Type of Contact [] Declined retail sales specialist visit [] Patient/Family/Request visit [] Outpatient visit [] Follow-up visit [] Physician referral [] Code/Alert [x Routine visit [] Staff referral [] Actively dying [] Patient sleeping [] Family support [] [] Out of room [] Palliative care [] [] Receiving care in room [] Pre-surgical visit [] Trauma [] Long length of stay [] ICU visit [] Other: Relational/Emotional Strength [x] Patient feels connected with others/family/visitors/staff [] Distress [] Loneliness/isolation [] Abandonment Spirituality of Patient x] Attends Temple of their [place] [x] Believes in Prayer [x] Reads Bible or Samaritan materials [] There are Spiritual issues to be addressed Machine Stoppage Frequency Checker Interventions [x] Prayer [x] Active listening [x] Non-anxious presence [x] Spiritual/emotional support [] Crisis/trauma care []x Spiritual counseling [] Bereavement support [] Provided bereavement packet [] Provided Bible/devotional materials [] Provided toy/stuffed animal, coloring book to patient or family member [] Provided Communion [] Anointing/[place] [] Salvation [] Completed spiritual assessment [] Other: Impact on Illness or Injury [] Angry [] Fearful [] Anxious [] Often cries [] Exhaustion [] Unable to work [] Unable to attend jew [] Unable to walk/stand [] Unable to read [] Unable to drive [] Unable to eat/drink [] Unable to sleep [] Unable to be with family [] Patient intubated [] Other: Summary Time spent with patient 15 min
[2022-01-11 11:26] LABS: Glucose Point of Care 142 mg/dL (70-110)
[2022-01-11 12:00] VITALS: BP 107/58; PULSE 78; RESP 14; TEMP 36.8; O2SAT 98
[2022-01-11] MEDS: insulin lispro 100 unit/1 mL SUBCUT (13:02)
[2022-01-11 13:48] VITALS: BP 107/58; PULSE 78; RESP 14; TEMP 36.8; O2SAT 98
== END 2022-01-11 13:50 | disposition home or self-care (01) | DRG 389 ==
LOC: ER 18:50 → MEDSURG 21:52
PROVIDERS: Admitting Provider Family Medicine; Emergency Provider Emergency Medicine; PCP Internal Medicine; Visit Provider Internal Medicine
DX: K56.600 Partial intestinal obstruction, unspecified as to cause (principal); D84.822 Immunodeficiency due to external causes; N39.0 Urinary tract infection, site not specified; I25.10 Atherosclerotic heart disease of native coronary artery without angina pectoris; Z95.1 Presence of aortocoronary bypass graft; I48.0 Paroxysmal atrial fibrillation; C67.9 Malignant neoplasm of bladder, unspecified; J43.9 Emphysema, unspecified; K21.9 Gastro-esophageal reflux disease without esophagitis; E78.5 Hyperlipidemia, unspecified; Z87.440 Personal history of urinary (tract) infections; M54.50 Low back pain, unspecified; Z87.891 Personal history of nicotine dependence; W88.1XXA Exposure to radioactive isotopes, initial encounter
CPT/HCPCS: 36415; 36416; 36592; 36593; 74018; 74177; 80048; 80053; 81001; 82962; 83036; 83605; 83690; 83735; 84100; 84145; 84443; 85025; 85610; 86140; 87040; 94664; 96365; 96367; 96372; 96375; 99285; C9113; J0696; J1650; J1815; J2270; J2997; J7030; Q9967; S0030

== ENCOUNTER 2022-01-21 13:15 | Oncology outpatient (recurring) (ONCR) | payer MEDICARE, OTHER, SELFPAY ==
[2021-12-24 12:47] VITALS: BP 116/65; PULSE 93; RESP 16; TEMP 519.7; TEMP 967.5; O2SAT 96
[2021-12-24 13:09] LABS: Basophils % 0.4 %; Eosinophils # 0.1 10^3/uL (0.0-0.8); Eosinophils % 1.7 %; Hematocrit 39.1 % (42.0-52.0); Lymphocytes # 0.6 10^3/uL (0.8-4.8); Mean Corpuscular HGB Conc 33.2 g/dL (30.0-36.0); Mean Corpuscular Volume 90.3 fl (80-94); Mean Platelet Volume 9.2 fL (7.4-10.4); Monocytes # 0.4 10^3/uL (0.2-0.9); Monocytes % 7.8 %; Nucleated Red Blood Cells % 0 %; Platelet Count 151 10^3/cmm (130-400); Red Blood Count 4.33 10^6/uL (4.1-5.3); Red Cell Distribution Width 14.8 % (12.1-15.1); White Blood Count 5.3 10^3/uL (4.0-10.0)
[2021-12-24 13:29] LABS: Alanine Aminotransferase 56 U/L (0-41); Albumin Level 4.1 g/dL (3.5-5.2); Alkaline Phosphatase 80 IU/L (40-130); Anion Gap 13.2 (5-19); Aspartate Amino Transferase 39 U/L (0-40); Blood Urea Nitrogen 25 mg/dL (8-23); Calcium 9.3 mg/dL (8.5-10.5); Carbon Dioxide 27 mmol/L (22-29); Chloride 101 mmol/L (98-107); Glucose 121 mg/dL (65-115); Osmolality Calculated 290 mOsm/kg (285-295); Potassium 4.2 mmol/L (3.5-5.1); Sodium 137 mmol/L (136-145); Total Bilirubin 0.5 mg/dL (0.15-1.2); Total Protein 7.1 g/dL (6.6-8.7)
[2021-12-24] MEDS: sodium chloride 0.9% 250 ML 75 ML IV (13:40)
[2021-12-24] MEDS: ondansetron 2 mg/ML SDV 2 mL 8 MG IVP (13:40)
[2021-12-24 14:14] LABS: Add Urine Microscopic? YES; Bilirubin Urine Neg (Negative); Blood Urine 2+ (Negative); Glucose Urine UA Norm (Normal); Ketones Urine Negative (Negative); Leukocyte Esterase Urine 2+ (Negative); Nitrate Urine Negative (Negative); Protein Urine 1+ (Negative); Urine Appearance Cloudy (CLEAR); Urine Color Yellow (Yellow); Urobilinogen Urine Norm (Negative); pH Urine 5 (5-7)
[2021-12-24 14:15] VITALS: BP 95/63; PULSE 84; RESP 16; TEMP 36.4; O2SAT 95
[2021-12-24 14:15] LABS: Add Urine Culture? Yes; Bacteria Urine 1+ /hpf; Squamous Epithelial Cell Urine 0-4 /hpf (0-5); WBC Urine >100 /hpf (0-5)
--- NOTE | 2021-12-25 15:40 | ONCRAD TMN_ITS ---
Radiation Oncology Treatment Management Note Patient Name: Fernando Lowe Date of : 1945 Date of Service: 12/25/2021 Attending Physician: Marshall Bhatti M.D. Fernando Lowe is a 76 year old white male diagnosed a clinical stage II (T2aN0 vs T2bN0) bladder cancer The patient was evaluated by his primary care physician in August for complaints of gross hematuria, dysuria, and urgency. An abdominopelvic CT scan ordered on September 20, 2021 identified a 2.9 cm x 2.3 cm filling-defect within the left posterior aspect of the bladder No lymphadenopathy was reported. He was referred to [facility] for further management. A cystoscopy completed on October 30, 2021 confirmed a large, papillary tumor within the left lateral, posterior bladder floor. A transurethral resection of the bladder tumor was performed by Morris Humphries M.D. on November 07, 2021. Intraoperative findings described a involving the left lateral wall of the bladder extending to the trigone. 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 Patient was admitted for intravesicular Mitomycin-C that was instilled on post-op day 1. He was discharged with a Pavon catheter which was removed following a voiding trial on November 12, 2021. The patient has received 41.3 Gy of a prescribed 55 Gy with an intensity modulated radiotherapy plan utilizing a step and shoot treatment technique. He has been prescribed chemotherapy consisting of weekly Gemzar (27 mg/m2). Upon review of systems, he described dysuria. On physical examination, the patient weighed 260 lbs. His temperature was 98.2 ???F and the blood pressure was 125/84 mmHg. The pulse was 67 bpm and his respiratory rate was 18. There was no erythema within the treatment pereira. Continue pelvic radiotherapy as planned. UA culture is pending. I recommended Pyridium for his symptoms. Signed by: Dr. Marshall Bhatti 12/25/2021 3:40:16 PM
[2021-12-27 14:20] LABS: Basophils % 0.4 %; Eosinophils # 0.2 10^3/uL (0.0-0.8); Eosinophils % 4.2 %; Hematocrit 36.9 % (42.0-52.0); Hemoglobin 12.3 g/dL (11.7-16.6); Lymphocytes # 0.6 10^3/uL (0.8-4.8); Lymphocytes % 12.7 %; Mean Corpuscular HGB Conc 33.3 g/dL (30.0-36.0); Mean Platelet Volume 9.3 fL (7.4-10.4); Monocytes # 0.3 10^3/uL (0.2-0.9); Monocytes % 5.7 %; Neutrophils # 3.63 10^3/uL (1.8-7.7); Neutrophils % 76.6 %; Nucleated Red Blood Cells % 0 %; Platelet Count 158 10^3/cmm (130-400); Red Cell Distribution Width 14.9 % (12.1-15.1); White Blood Count 4.7 10^3/uL (4.0-10.0)
[2021-12-27] MEDS: sodium chloride 0.9% 250 ML 100 ML IV (14:38)
[2021-12-27] MEDS: ondansetron 2 mg/ML SDV 2 mL 8 MG IVP (14:40)
[2021-12-27 15:26] VITALS: BP 104/67; PULSE 84; RESP 16; TEMP 36.3; O2SAT 97
[2021-12-31 13:15] LABS: Basophils % 0.4 %; Eosinophils # 0.2 10^3/uL (0.0-0.8); Hematocrit 36.1 % (42.0-52.0); Hemoglobin 11.9 g/dL (11.7-16.6); Lymphocytes # 0.5 10^3/uL (0.8-4.8); Lymphocytes % 8.6 %; Mean Corpuscular Hemoglobin 29.8 pg (28.0-34.0); Mean Corpuscular Volume 90.5 fl (80-94); Mean Platelet Volume 9.4 fL (7.4-10.4); Monocytes # 0.3 10^3/uL (0.2-0.9); Monocytes % 4.9 %; Neutrophils # 4.29 10^3/uL (1.8-7.7); Neutrophils % 81.6 %; Nucleated Red Blood Cells % 0.6 %; Platelet Count 152 10^3/cmm (130-400); Red Blood Count 3.99 10^6/uL (4.1-5.3); White Blood Count 5.3 10^3/uL (4.0-10.0)
[2021-12-31 13:48] LABS: Alanine Aminotransferase 40 U/L (0-41); Albumin Level 3.8 g/dL (3.5-5.2); Alkaline Phosphatase 92 IU/L (40-130); Anion Gap 14.4 (5-19); Aspartate Amino Transferase 28 U/L (0-40); Blood Urea Nitrogen 19 mg/dL (8-23); Calcium 9.2 mg/dL (8.5-10.5); Carbon Dioxide 27 mmol/L (22-29); Chloride 104 mmol/L (98-107); Glucose 122 mg/dL (65-115); Osmolality Calculated 296 mOsm/kg (285-295); Potassium 4.4 mmol/L (3.5-5.1); Sodium 141 mmol/L (136-145); Total Bilirubin 0.5 mg/dL (0.15-1.2); Total Protein 6.8 g/dL (6.6-8.7)
[2021-12-31] MEDS: HYDROcodone-acetaminophen 5-325 mg Tablet 2 TAB PO (14:51)
--- NOTE | 2021-12-31 15:00 | CTR_ITS ---
PROCEDURE INFORMATION: Exam: CT Abdomen And Pelvis With Contrast Exam date and time: 12/31/2021 3:36 PM Age: 76 years old Clinical indication: Abdominal pain; Generalized; Prior surgery; Surgery type: Bladder, appy; Patient HX: Mid abdomen pain since 2 days; Additional info: Pain, HX of bladder cancer TECHNIQUE: Imaging protocol: Computed tomography of the abdomen and pelvis with contrast. Radiation optimization: All CT scans at this facility use at least one of these dose optimization techniques: automated exposure control; mA and/or kV adjustment per patient size (includes targeted exams where dose is matched to clinical indication); or iterative reconstruction. Contrast material: OMNI 350; Contrast volume: 95 ml; Contrast route: INTRAVENOUS (IV); COMPARISON: CT abdomen pelvis wo con [id number] 09/20/2021 7:33 AM RADIATION DOSE METRICS: Total DLP (mGy-cm): 1399.59 FINDINGS: Lungs: Emphysematous changes. Patchy bilateral minimal ground-glass airspace opacities, largely peripherally, reflecting atelectasis versus minimal infiltrate. Heart: Coronary artery atherosclerotic calcifications. Liver: Normal. No mass. Gallbladder and bile ducts: Cholelithiasis. Pancreas: Normal. No ductal dilation. Spleen: Spleen enlarged to 14.7 cm. Adrenal glands: Normal. No mass. Kidneys and ureters: Bilateral renal cysts, negative for follow-up advised. Perinephric edema bilaterally likely reflecting chronic renal insufficiency. Stomach and bowel: Terminal ileum and transverse/descending colon wall thickening suggestive of an enterocolitis. Diverticulosis without diverticulitis. Appendix: No evidence of appendicitis. Intraperitoneal space: Unremarkable. No free air. No significant fluid collection. Vasculature: Fusiform abdominal aortic aneurysm measuring up to 5.2 cm in diameter at the level of the celiac and renal arteries bilaterally. Lymph nodes: Unremarkable. No enlarged lymph nodes. Urinary bladder: Unremarkable as visualized. Reproductive: Unremarkable as visualized. Bones/joints: L2 vertebral body chronic compression fracture without retropulsion of bony fragments. Sternotomy wires. Soft tissues: Unremarkable. CT/CT abdomen pelvis w con* [id number] IMPRESSION: 1. Terminal ileum and transverse/descending colon wall thickening suggestive of an enterocolitis. 2. Diverticulosis without diverticulitis. 3. L2 vertebral body chronic compression fracture without retropulsion of bony fragments. 4. Coronary artery atherosclerotic calcifications. 5. Sternotomy wires. 6. Emphysematous changes. 7. Patchy bilateral minimal ground-glass airspace opacities, largely peripherally, reflecting atelectasis versus minimal infiltrate. 8. Spleen enlarged to 14.7 cm. 9. Bilateral renal cysts, negative for follow-up advised. 10. Fusiform abdominal aortic aneurysm measuring up to 5.2 cm in diameter at the level of the celiac and renal arteries bilaterally. 11. Cholelithiasis. 12. Perinephric edema bilaterally likely reflecting chronic renal insufficiency. COMMENTS: Consistent with the [employer]'s Incidental Findings Committee white paper (J Am Kelton Radiol 2018): Any incidental renal lesion less than 1 cm or classified as too small to characterize, or any incidental cystic renal lesion characterized as simple-appearing, is likely benign. No follow-up imaging is recommended for these lesions per consensus recommendations based on imaging criteria.
[2021-12-31] MEDS: iohexol 350 mg/mL 100 mL Btl IV (15:45)
--- NOTE | 2022-01-01 15:35 | ONCRAD TMN_ITS ---
Radiation Oncology Treatment Management Note Patient Name: Fernando Lowe Date of : 1945 Date of Service: 01/01/2022 Attending Physician: Marshall Bhatti M.D. Fernando Lowe is a 76 year old white male diagnosed a clinical stage II (T2aN0 vs T2bN0) bladder cancer The patient was evaluated by his primary care physician in August for complaints of gross hematuria, dysuria, and urgency. An abdominopelvic CT scan ordered on September 20, 2021 identified a 2.9 cm x 2.3 cm filling-defect within the left posterior aspect of the bladder No lymphadenopathy was reported. He was referred to [facility] for further management. A cystoscopy completed on October 30, 2021 confirmed a large, papillary tumor within the left lateral, posterior bladder floor. A transurethral resection of the bladder tumor was performed by Morris Humphries M.D. on November 07, 2021. Intraoperative findings described a involving the left lateral wall of the bladder extending to the trigone. 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 Patient was admitted for intravesicular Mitomycin-C that was instilled on post-op day 1. He was discharged with a Pavon catheter which was removed following a voiding trial on November 12, 2021. The patient has received 55 Gy of a prescribed 55 Gy with an intensity modulated radiotherapy plan utilizing a step and shoot treatment technique. He has been prescribed chemotherapy consisting of weekly Gemzar (27 mg/m2). Upon review of systems, he described slight abdominal pain. On physical examination, the patient weighed 246 lbs. His temperature was 97.7 ???F and the blood pressure was 111/71 mmHg. The pulse was 85 bpm and his respiratory rate was 18. There was no erythema within the treatment pereira. Radiotherapy was completed today. Signed by: Dr. Marshall Bhatti 01/01/2022 3:33:22 PM
[2022-01-07] MEDS: alteplase 1 mg/mL SDV 2 mL 2 MG IV (10:47)
[2022-01-07 10:50] LABS: Basophils % 0.5 %; Eosinophils # 0.2 10^3/uL (0.0-0.8); Eosinophils % 2.9 %; Hematocrit 36.6 % (42.0-52.0); Hemoglobin 11.9 g/dL (11.7-16.6); Lymphocytes # 0.6 10^3/uL (0.8-4.8); Lymphocytes % 9.6 %; Mean Corpuscular HGB Conc 32.5 g/dL (30.0-36.0); Mean Corpuscular Hemoglobin 30.2 pg (28.0-34.0); Mean Corpuscular Volume 92.9 fl (80-94); Mean Platelet Volume 9.3 fL (7.4-10.4); Monocytes # 0.6 10^3/uL (0.2-0.9); Monocytes % 10.7 %; Neutrophils % 73.8 %; Nucleated Red Blood Cells % 0 %; Platelet Count 133 10^3/cmm (130-400); Red Blood Count 3.94 10^6/uL (4.1-5.3); Red Cell Distribution Width 17.1 % (12.1-15.1)
[2022-01-07 11:10] LABS: Alanine Aminotransferase 116 U/L (0-41); Albumin Level 3.9 g/dL (3.5-5.2); Alkaline Phosphatase 77 U/L (40-130); Anion Gap 16.9 (5-19); Aspartate Amino Transferase 82 U/L (0-40); Blood Urea Nitrogen 23 mg/dL (8-23); Calcium 8.9 mg/dL (8.5-10.5); Carbon Dioxide 26 mmol/L (22-29); Chloride 101 mmol/L (98-107); Creatinine Clr Calc Pharmacy 84.4888; Globulin 2.8 g/dL (1.3-4.6); Glucose 109 mg/dL (65-115); Osmolality Calculated 294 mOsm/kg (285-295); Potassium 3.9 mmol/L (3.5-5.1); Sodium 140 mmol/L (136-145); Total Bilirubin 0.3 mg/dL (0.15-1.2); Total Protein 6.7 g/dL (6.6-8.7)
[2022-01-14 13:47] LABS: Basophils % 0.3 %; Eosinophils # 0.2 10^3/uL (0.0-0.8); Eosinophils % 2.3 %; Hematocrit 37.8 % (42.0-52.0); Hemoglobin 12.4 g/dL (11.7-16.6); Lymphocytes # 0.7 10^3/uL (0.8-4.8); Lymphocytes % 9.8 %; Mean Corpuscular HGB Conc 32.8 g/dL (30.0-36.0); Mean Corpuscular Hemoglobin 30.4 pg (28.0-34.0); Mean Corpuscular Volume 92.6 fl (80-94); Mean Platelet Volume 9.1 fL (7.4-10.4); Monocytes # 0.5 10^3/uL (0.2-0.9); Monocytes % 7.7 %; Neutrophils # 5.51 10^3/uL (1.8-7.7); Nucleated Red Blood Cells % 0 %; Platelet Count 152 10^3/cmm (130-400); Red Blood Count 4.08 10^6/uL (4.1-5.3)
[2022-01-14 14:10] LABS: Alanine Aminotransferase 84 U/L (0-41); Albumin Level 3.8 g/dL (3.5-5.2); Alkaline Phosphatase 74 U/L (40-130); Anion Gap 14.4 (5-19); Aspartate Amino Transferase 50 U/L (0-40); Blood Urea Nitrogen 19 mg/dL (8-23); Calcium 9.1 mg/dL (8.5-10.5); Carbon Dioxide 25 mmol/L (22-29); Chloride 104 mmol/L (98-107); Creatinine Clr Calc Pharmacy 84.4888; Globulin 2.8 g/dL (1.3-4.6); Glucose 94 mg/dL (65-115); Osmolality Calculated 290 mOsm/kg (285-295); Potassium 4.4 mmol/L (3.5-5.1); Sodium 139 mmol/L (136-145); Total Bilirubin 0.3 mg/dL (0.15-1.2); Total Protein 6.6 g/dL (6.6-8.7)
[2022-01-21 13:45] VITALS: BMI 28.7
== END 2022-01-23 23:59 | disposition home or self-care (01) ==
PROVIDERS: Internal Medicine Hematology & Oncology; Internal Medicine Medical Oncology; Nurse Practitioner Family; PCP Internal Medicine; Visit Provider Radiology Radiation Oncology
DX: C67.8 Malignant neoplasm of overlapping sites of bladder (principal)
CPT/HCPCS: 36592; 36593; 74177; 77336; 77386; 80053; 81001; 85025; 87086; 96375; 96413; 99214; 99215; J2405; J2997; J7050; J9201

== ENCOUNTER → 2022-02-11 13:45 | Outpatient (BNVA) | payer MEDICARE, OTHER, SELFPAY | PROVIDERS: PCP Internal Medicine; Visit Provider Urology | DX: C67.9 Malignant neoplasm of bladder, unspecified (principal) | CPT/HCPCS: 36592; 52000; 80053; 85025 ==

== ENCOUNTER 2022-02-18 13:00 | Oncology outpatient (recurring) (ONCR) | payer MEDICARE, OTHER, SELFPAY ==
[2022-02-11 12:48] LABS: Basophils % 0.6 %; Eosinophils # 0.2 10^3/uL (0.0-0.8); Eosinophils % 3.4 %; Hematocrit 38.6 % (42.0-52.0); Hemoglobin 12.5 g/dL (11.7-16.6); Lymphocytes # 0.7 10^3/uL (0.8-4.8); Lymphocytes % 13.1 %; Mean Corpuscular HGB Conc 32.4 g/dL (30.0-36.0); Mean Corpuscular Hemoglobin 30.6 pg (28.0-34.0); Mean Corpuscular Volume 94.4 fl (80-94); Mean Platelet Volume 9.5 fL (7.4-10.4); Monocytes # 0.4 10^3/uL (0.2-0.9); Neutrophils # 3.74 10^3/uL (1.8-7.7); Neutrophils % 74.5 %; Nucleated Red Blood Cells % 0 %; Platelet Count 144 10^3/cmm (130-400); Red Blood Count 4.09 10^6/uL (4.1-5.3); Red Cell Distribution Width 14.5 % (12.1-15.1)
[2022-02-11 13:09] LABS: Alanine Aminotransferase 14 U/L (0-41); Albumin Level 3.9 g/dL (3.5-5.2); Alkaline Phosphatase 90 U/L (40-130); Aspartate Amino Transferase 18 U/L (0-40); Blood Urea Nitrogen 25 mg/dL (8-23); Calcium 9.4 mg/dL (8.5-10.5); Carbon Dioxide 27 mmol/L (22-29); Chloride 102 mmol/L (98-107); Globulin 3.3 g/dL (1.3-4.6); Glucose 105 mg/dL (65-115); Osmolality Calculated 291 mOsm/kg (285-295); Sodium 138 mmol/L (136-145); Total Bilirubin 0.5 mg/dL (0.15-1.2); Total Protein 7.2 g/dL (6.6-8.7)
[2022-02-11 13:13] LABS: Anion Gap 13.7 (5-19); Potassium 4.7 mmol/L (3.5-5.1)
--- NOTE | 2022-02-15 09:01 | ONCRAD EPV_ITS ---
Radiation Oncology Follow-Up Note Patient Name: Fernando Lowe Date of : 1945 Date of Service: 02/15/2022 Attending Physician: Marshall Bhatti M.D. Fernando Lowe return to my office this morning for a routinely scheduled follow-up appointment. 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 The patient was evaluated by his primary care physician in August for complaints of gross hematuria, dysuria, and urgency. An abdominopelvic CT scan ordered on September 20, 2021 identified a 2.9 cm x 2.3 cm filling-defect within the left posterior aspect of the bladder No lymphadenopathy was reported. He was referred to [facility] for further management. A cystoscopy completed on October 30, 2021 confirmed a large, papillary tumor within the left lateral, posterior bladder floor. A transurethral resection of the bladder tumor was performed by Morris Humphries M.D. on November 07, 2021. Intraoperative findings described a involving the left lateral wall of the bladder extending to the trigone. 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 Patient was admitted for intravesicular Mitomycin-C that was instilled on post-op day 1. He was discharged with a Pavon catheter which was removed following a voiding trial on November 12, 2021. Pelvic radiation therapy was delivered between the dates of December 05, 2021 through January 01, 2022. A prescribed dose of 55 Gy was delivered in 20 fractions encompassing 28 elapsed days. He was prescribed chemotherapy consisting of weekly Gemzar (27 mg/m2) between the dates of December 05, 2021 through On review of systems, On physical examination, his temperature was 96.8???F and the blood pressure was 123/60 mmHg. The pulse was 85 bpm and his respiratory rate was breaths per minute. In summary, Mr. Lowe returned for a routine post-radiotherapy follow-up. A recent cystoscopy demonstrated complete resolution of the bladder tumor. According to NCCN Guidelines a CT urogram is recommended every three to six months. He will continue follow-up with urology as scheduled. Signed by: Dr. Marshall Bhatti 02/15/2022 9:00:33 AM
--- NOTE | 2022-02-15 09:06 | ONCRAD EPV_ITS ---
Radiation Oncology Follow-Up Note Patient Name: Fernando Lowe Date of : 1945 Date of Service: 02/15/2022 Attending Physician: Marshall Bhatti M.D. Fernando Lowe return to my office this morning for a routinely scheduled follow-up appointment. 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 The patient was evaluated by his primary care physician in August for complaints of gross hematuria, dysuria, and urgency. An abdominopelvic CT scan ordered on September 20, 2021 identified a 2.9 cm x 2.3 cm filling-defect within the left posterior aspect of the bladder No lymphadenopathy was reported. He was referred to [facility] for further management. A cystoscopy completed on October 30, 2021 confirmed a large, papillary tumor within the left lateral, posterior bladder floor. A transurethral resection of the bladder tumor was performed by Morris Humphries M.D. on November 07, 2021. Intraoperative findings described a involving the left lateral wall of the bladder extending to the trigone. 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 Patient was admitted for intravesicular Mitomycin-C that was instilled on post-op day 1. He was discharged with a Pavon catheter which was removed following a voiding trial on November 12, 2021. Pelvic radiation therapy was delivered between the dates of December 05, 2021 through January 01, 2022. A prescribed dose of 55 Gy was delivered in 20 fractions encompassing 28 elapsed days. He was prescribed chemotherapy consisting of weekly Gemzar (27 mg/m2) between the dates of December 05, 2021 through December 27, 2021. On review of systems, he described urinary frequency. On physical examination, his weight was 241 lbs. His temperature was 97.4???F and the blood pressure was 121/57 mmHg. The pulse was 78 bpm and his respiratory rate was 16 breaths per minute. In summary, Mr. Lowe returned for a routine post-radiotherapy follow-up. A recent cystoscopy demonstrated complete resolution of the bladder tumor. According to NCCN Guidelines a CT urogram is recommended every three to six months. He will continue follow-up with urology as scheduled. Signed by: Dr. Marshall Bhatti 02/15/2022 9:05:03 AM
[2022-02-15 10:19] VITALS: RESP 18; TEMP 36.1
--- NOTE | 2022-02-15 10:23 | PC.NURSE ---
Pt to GI lab for removal of right PICC line. PICC line removed without difficulty. Pt tolerated well. Site clear without redness, drainage, or bleeding noted.
== END 2022-02-22 23:59 | disposition home or self-care (01) ==
PROVIDERS: Nurse Practitioner Family; PCP Internal Medicine; Visit Provider Radiology Radiation Oncology
DX: Z53.9 Procedure and treatment not carried out, unspecified reason (principal)
CPT/HCPCS: 36592; 80053; 85025; 99214

== ENCOUNTER → 2022-03-19 10:41 | Outpatient (BNVA) | payer MEDICARE, OTHER, SELFPAY | PROVIDERS: PCP Internal Medicine; Visit Provider Internal Medicine Cardiovascular Disease | DX: R42 Dizziness and giddiness (principal); I48.0 Paroxysmal atrial fibrillation; J44.9 Chronic obstructive pulmonary disease, unspecified; Z87.891 Personal history of nicotine dependence; I25.10 Atherosclerotic heart disease of native coronary artery without angina pectoris; Z95.1 Presence of aortocoronary bypass graft; E11.9 Type 2 diabetes mellitus without complications; Z79.84 Long term (current) use of oral hypoglycemic drugs; H91.90 Unspecified hearing loss, unspecified ear | CPT/HCPCS: 99214 ==

== ENCOUNTER → 2022-05-21 13:29 | Outpatient (BNVA) | payer MEDICARE, OTHER, SELFPAY | PROVIDERS: PCP Internal Medicine; Visit Provider Urology | DX: C67.9 Malignant neoplasm of bladder, unspecified (principal) | CPT/HCPCS: 52000; 81003 ==

== ENCOUNTER → 2022-06-13 13:39 | Outpatient (BNVA) | payer MEDICARE, OTHER, SELFPAY | PROVIDERS: PCP Internal Medicine; Visit Provider Nurse Practitioner Family | DX: I48.0 Paroxysmal atrial fibrillation (principal); I25.10 Atherosclerotic heart disease of native coronary artery without angina pectoris; Z87.891 Personal history of nicotine dependence; Z95.1 Presence of aortocoronary bypass graft | CPT/HCPCS: 99214 ==

== ENCOUNTER → 2022-07-29 13:50 | Outpatient (BNVA) | payer MEDICARE, OTHER, SELFPAY | PROVIDERS: PCP Internal Medicine; Visit Provider Internal Medicine Cardiovascular Disease | DX: I25.10 Atherosclerotic heart disease of native coronary artery without angina pectoris (principal); I48.0 Paroxysmal atrial fibrillation; J44.9 Chronic obstructive pulmonary disease, unspecified; Z86.79 Personal history of other diseases of the circulatory system; Z87.891 Personal history of nicotine dependence; I11.0 Hypertensive heart disease with heart failure; I50.9 Heart failure, unspecified; Z95.1 Presence of aortocoronary bypass graft | CPT/HCPCS: 99214 ==

== ENCOUNTER 2022-08-27 07:28 | Outpatient (CLI) | payer MEDICARE, OTHER, SELFPAY ==
--- NOTE | 2022-08-27 08:00 | CTR_ITS ---
PROCEDURE INFORMATION: Exam: CTA Abdomen and Pelvis With Contrast Exam date and time: 08/27/2022 8:56 AM Age: 76 years old Clinical indication: Cardiovascular condition or disease; Ruptured; Prior surgery; Patient HX: Abdominal aortic aneurysm. Heart. History of heart surgery and appy. Aaa aneurysm repair. Prior history of bladder cancer TECHNIQUE: Imaging protocol: Computed tomographic angiography of the abdomen and pelvis with contrast. 3D rendering (Not supervised by radiologist): MIP and/or 3D reconstructed images were created by the technologist. Radiation optimization: All CT scans at this facility use at least one of these dose optimization techniques: automated exposure control; mA and/or kV adjustment per patient size (includes targeted exams where dose is matched to clinical indication); or iterative reconstruction. Contrast material: OMNIPAQUE 350; Contrast volume: 95 ml; Contrast route: INTRAVENOUS (IV); REPORTING DATA: Count of CT and Cardiac NM exams in prior 12 months: This patient has received 4 known CTs and 0 known cardiac nuclear medicine studies in the 12 months prior to the current study. 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 Aorta: Prior EVAR of 4.8 x 4.7 cm aneurysm of the mid abdominal aorta stable in size with patent bifurcated aortoiliac stent. No obvious endoleak demonstrated on the early arterial images. Celiac trunk and mesenteric arteries: No occlusion or significant stenosis. Renal arteries: Right renal artery is narrowed at its origin. There is a focal stenosis of the proximal 1/3 portion left renal artery. Right iliac arteries: Right iliac arteries distal to the stent are patent and unremarkable. Left iliac arteries: Left iliac arteries distal to the stent are patent and unremarkable. Liver: No mass. Gallbladder and bile ducts: Gallbladder has contracted with multiple small gallstones. Pancreas: Unremarkable. Main pancreatic duct is not significantly dilated. Spleen: Unremarkable. No splenomegaly. Adrenal glands: Unremarkable. No mass. Kidneys and ureters: There are benign-appearing renal cysts relatively stable. Stomach and bowel: Unremarkable. No obstruction. No mucosal thickening. Appendix: No evidence of appendicitis. Intraperitoneal space: Unremarkable. No free air. No significant fluid collection. Lymph nodes: Unremarkable. No enlarged lymph nodes. Urinary bladder: Unremarkable. No mass. Reproductive: Unremarkable as visualized. Bones/joints: There is a chronic compression fracture of L2 unchanged otherwise osseous structures are unremarkable for age. Soft tissues: There are small fat containing inguinal hernias bilaterally, stable. CT/CT angio abdomen pelvis [id number] IMPRESSION: 1. EVAR of stable 4.8 x 4.7 cm abdominal aortic aneurysm with patent bifurcated aortoiliac stent. 2. Additional chronic nonvascular findings as above.
[2022-08-27 08:34] LABS: INR 1.04 (0.83-1.21); Prothrombin Time (Patient) 13.9 Seconds (12.0-15.1)
[2022-08-27 08:48] LABS: Anion Gap 14.1 (5-19); Blood Urea Nitrogen 27 mg/dL (8-23); Calcium 8.6 mg/dL (8.5-10.5); Carbon Dioxide 25 mmol/L (22-29); Chloride 109 mmol/L (98-107); Glucose 123 mg/dL (65-115); NT Pro B Type Natriuretic Pept 354 pg/mL (0-450); Osmolality Calculated 304 mOsm/kg (285-295); Potassium 4.1 mmol/L (3.5-5.1); Sodium 144 mmol/L (136-145); Thyroid Stimulating Hormone 1.57 uIU/mL (0.27-4.20)
[2022-08-27] MEDS: iohexol 350 mg/mL 100 mL Btl IV (09:08)
== END 2022-08-27 07:29 | disposition home or self-care (01) ==
LOC: RAD 07:32
PROVIDERS: PCP Internal Medicine; Visit Provider Internal Medicine Cardiovascular Disease
DX: I25.10 Atherosclerotic heart disease of native coronary artery without angina pectoris (principal); I48.0 Paroxysmal atrial fibrillation; Z86.79 Personal history of other diseases of the circulatory system; I71.40 Abdominal aortic aneurysm, without rupture, unspecified
CPT/HCPCS: 36415; 74174; 80048; 83880; 84443; 85610; Q9967

== ENCOUNTER → 2022-09-12 12:49 | Outpatient (BNVA) | payer MEDICARE, OTHER, SELFPAY | PROVIDERS: PCP Internal Medicine; Visit Provider Urology | DX: C67.9 Malignant neoplasm of bladder, unspecified (principal) | CPT/HCPCS: 51798; 52000; 81003 ==

== ENCOUNTER → 2022-11-28 08:37 | Outpatient (BNVA) | payer MEDICARE, OTHER, SELFPAY | PROVIDERS: PCP Internal Medicine; Referring Provider Internal Medicine; Visit Provider Physician Assistant | DX: S32.000A Wedge compression fracture of unspecified lumbar vertebra, initial encounter for closed fracture (principal); X58.XXXA Exposure to other specified factors, initial encounter; M54.50 Low back pain, unspecified; M54.16 Radiculopathy, lumbar region; M51.36 Other intervertebral disc degeneration, lumbar region | CPT/HCPCS: 72110; 99203 ==

== ENCOUNTER 2022-12-16 08:07 | Outpatient (CLI) | payer MEDICARE, OTHER, SELFPAY ==
--- NOTE | 2022-12-16 08:45 | MR_ITS ---
WS: [id number] MRI LUMBAR SPINE NONCONTRAST HISTORY: lower back pain COMPARISON: Lumbar spine radiographs 11/28/2022 TECHNIQUE: Sagittal and axial multisequence imaging is submitted. Slight straightening of the normal lumbar lordosis. L2 mild compression deformity by approximately 20 % with associated hemangioma. No acute marrow edema and no acute fracture. Disc spaces and vertebral body heights are well-preserved. Conus terminates normally at L1. L1-L2: Normal. L2-L3: Mild ligamentum flavum and facet arthritis. There is mild encroachment upon the ventral thecal sac and narrowing of the subarticular recesses, RIGHT greater than LEFT. No high-grade stenosis. L3-L4: Diffuse annular disc bulging, osteophytic ridging with moderate ligamentum flavum and facet ar thritis. Encroachment upon the thecal sac by combination of factors as above. Moderate to severe cent ral, bilateral subarticular recess and no foraminal stenosis. Stenosis continues into the subarticula r canal. L4-L5: Diffuse annular disc bulging with mild osteophytic ridging, marked ligamentum flavum and facet arthritis. Severe central, bilateral subarticular recess and minimal foraminal narrowing. There is s ignificant contact and displacement of the traversing L5 nerve roots. L5-S1: Diffuse annular disc bulge with moderate ligamentum flavum and facet arthritis. Disc contacts the traversing S1 nerve roots. Mild central and bilateral subarticular recess and foraminal stenosis. Mild atherosclerosis aorta. MR/MR lumbar spine wo con* [id number] IMPRESSION: 1. Severe central, bilateral subarticular recess and mild foraminal stenosis a t L4-5. There is significant contact with displacement of the traversing L5 ner ve roots. 2. Moderate to severe central and bilateral subarticular recess stenosis at L3 -4. 3. Mild bilateral subarticular recess stenosis at L2-3. Slightly later stenosi s on the RIGHT. 4. Mild central, bilateral subarticular recess and foraminal stenosis at L5-S1 . 5. Chronic L2 compression fracture by 20%.
== END 2022-12-16 08:08 | disposition home or self-care (01) ==
PROVIDERS: PCP Internal Medicine; Visit Provider Physician Assistant
DX: M48.061 Spinal stenosis, lumbar region without neurogenic claudication (principal); M48.56XA Collapsed vertebra, not elsewhere classified, lumbar region, initial encounter for fracture; M51.36 Other intervertebral disc degeneration, lumbar region
CPT/HCPCS: 72148

== ENCOUNTER → 2022-12-18 09:26 | Outpatient (BNVA) | payer MEDICARE, OTHER, SELFPAY | PROVIDERS: PCP Internal Medicine; Visit Provider Physician Assistant | DX: M48.062 Spinal stenosis, lumbar region with neurogenic claudication (principal); M47.816 Spondylosis without myelopathy or radiculopathy, lumbar region | CPT/HCPCS: 99214 ==

== ENCOUNTER → 2023-01-28 08:41 | Outpatient (BNVA) | payer MEDICARE, OTHER, SELFPAY | PROVIDERS: PCP Internal Medicine; Visit Provider Anesthesiology Pain Medicine | DX: M48.062 Spinal stenosis, lumbar region with neurogenic claudication (principal); M47.816 Spondylosis without myelopathy or radiculopathy, lumbar region; M54.16 Radiculopathy, lumbar region; S32.000A Wedge compression fracture of unspecified lumbar vertebra, initial encounter for closed fracture; M51.36 Other intervertebral disc degeneration, lumbar region; X58.XXXA Exposure to other specified factors, initial encounter | CPT/HCPCS: 99205 ==

== ENCOUNTER → 2023-02-03 13:26 | Outpatient (BNVA) | payer MEDICARE, OTHER, SELFPAY | PROVIDERS: PCP Internal Medicine; Visit Provider Anesthesiology Pain Medicine | DX: M54.16 Radiculopathy, lumbar region (principal); M48.062 Spinal stenosis, lumbar region with neurogenic claudication | CPT/HCPCS: 64483; 64484; J1100; J3490 ==

== ENCOUNTER → 2023-02-17 14:14 | Outpatient (BNVA) | payer MEDICARE, OTHER, SELFPAY | PROVIDERS: PCP Internal Medicine; Visit Provider Anesthesiology Pain Medicine | DX: M54.16 Radiculopathy, lumbar region (principal); M48.062 Spinal stenosis, lumbar region with neurogenic claudication; I48.0 Paroxysmal atrial fibrillation; Z95.1 Presence of aortocoronary bypass graft; E11.9 Type 2 diabetes mellitus without complications; Z87.09 Personal history of other diseases of the respiratory system; Z86.79 Personal history of other diseases of the circulatory system; Z87.891 Personal history of nicotine dependence | CPT/HCPCS: 64483; 64484; 99214; J1100; J3490 ==

== ENCOUNTER 2023-02-28 07:09 | Outpatient (CLI) | payer MEDICARE, OTHER, SELFPAY ==
--- NOTE | 2023-02-28 08:00 | USCV_ITS ---
Fernando Lowe Age: 77 Gender: M : 1945 Exam Date: 02/28/2023 07:30 Ordering Phys: Mari Keen MD ([email or web address]) Technologist: Exam Location: [facility] [place] Indication: hx of cad BP: 154 / 78 HR: 63 Rhythm: Sinus Technical Quality: Adequate MEASUREMENTS (Male / Female) Normal Values 2D ECHO LV Diastolic Diameter PLAX 4.9 cm 4.2 - 5.9 / 3.9 - 5.3 cm LV Systolic Diameter PLAX 2.7 cm IVS Diastolic Thickness 1.1 cm 0.6 - 1.0 / 0.6 - 0.9 cm IVS Systolic Thickness 1.5 cm LVPW Diastolic Thickness 1.2 cm 0.6 - 1.0 / 0.6 - 0.9 cm LVPW Systolic Thickness 1.3 cm LVOT Diameter 2.0 cm LV Ejection Fraction 2D Teich 76.8 % LV Ejection Fraction MOD 2C 69.2 % LV Ejection Fraction 2C AL 71.0 % LA Diameter 4.2 cm Aorta at Sinotubular Diameter 2.6 cm IVC Diameter 1.3 cm M-MODE Aortic Annulus Diameter 3.9 cm LA Ao Ratio MM 1.1 MV E Point Septal Separation 0.5 cm DOPPLER AV Peak Velocity 109.0 cm/s LVOT Peak Velocity 83.0 cm/s AV Area Cont Eq vti 2.6 cm squared AV Area Cont Eq pk 2.5 cm squared MV Area PHT 5.0 cm squared Mitral E to A Ratio 1.1 MV E' Velocity 38.5 cm/s Mitral E to MV E' Ratio 8.2 Mitral E to LV E' Lateral Ratio 7.8 Mitral E to LV E' Septal Ratio 8.9 TR Peak Velocity 169.3 cm/s TR Peak Gradient 11.5 mmHg TV Peak E Velocity 75.7 cm/s Right Atrial Pressure 3.0 mmHg Pulmonary Artery Systolic Pressu 14.5 mmHg RV Acceleration Time 0.1 s FINDINGS Left Ventricle Normal left ventricular size and systolic function, EF 71 %. No regional wall motion abnormalities. Right Ventricle The right ventricle is normal in size and function. Right Atrium The right atrium is normal in size. Left Atrium Mildly increased left atrial size. Mitral Valve Thickened mitral valve. Aortic Valve Thickened aortic valve. Tricuspid Valve No gross abnormalities noted Pulmonic Valve No gross abnormalities noted Pericardium Normal pericardium without effusion. Aorta Normal ascending aorta dimension. IVC The inferior vena cava appears normal. CONCLUSIONS Normal left ventricular size and systolic function, EF 71 %. No regional wall motion abnormalities. Mildly increased left atrial size. Thickened mitral valve. Thickened aortic valve. There is no pericardial effusion. There are no intracardiac masses. Compared to the study from 09/09/2017, there may not be a significant change Dr Mari Keen MD FACC (Electronically Signed) Final Date: 01 March 2023 14:13 S
== END 2023-02-28 07:10 | disposition home or self-care (01) ==
LOC: RAD 07:10
PROVIDERS: PCP Internal Medicine; Visit Provider Internal Medicine Cardiovascular Disease
DX: R06.09 Other forms of dyspnea (principal); I08.0 Rheumatic disorders of both mitral and aortic valves
CPT/HCPCS: 93306

== ENCOUNTER → 2023-03-11 09:35 | Outpatient (BNVA) | payer MEDICARE, OTHER, SELFPAY | PROVIDERS: PCP Internal Medicine; Visit Provider Anesthesiology Pain Medicine | DX: M48.062 Spinal stenosis, lumbar region with neurogenic claudication (principal); M47.816 Spondylosis without myelopathy or radiculopathy, lumbar region; M54.16 Radiculopathy, lumbar region; S32.000A Wedge compression fracture of unspecified lumbar vertebra, initial encounter for closed fracture; M51.36 Other intervertebral disc degeneration, lumbar region; X58.XXXA Exposure to other specified factors, initial encounter | CPT/HCPCS: 99215 ==

== ENCOUNTER → 2023-04-10 09:11 | Outpatient (BNVA) | payer MEDICARE, OTHER, SELFPAY | PROVIDERS: PCP Internal Medicine; Visit Provider Anesthesiology Pain Medicine | DX: M48.062 Spinal stenosis, lumbar region with neurogenic claudication (principal); M47.816 Spondylosis without myelopathy or radiculopathy, lumbar region; M54.16 Radiculopathy, lumbar region; S32.000A Wedge compression fracture of unspecified lumbar vertebra, initial encounter for closed fracture; M51.36 Other intervertebral disc degeneration, lumbar region; X58.XXXA Exposure to other specified factors, initial encounter | CPT/HCPCS: 99214 ==

== ENCOUNTER → 2023-06-10 08:30 | Outpatient (BNVA) | payer MEDICARE, OTHER, SELFPAY | PROVIDERS: PCP Internal Medicine; Visit Provider Anesthesiology Pain Medicine | DX: M48.062 Spinal stenosis, lumbar region with neurogenic claudication (principal); M54.16 Radiculopathy, lumbar region; M47.816 Spondylosis without myelopathy or radiculopathy, lumbar region; S32.000A Wedge compression fracture of unspecified lumbar vertebra, initial encounter for closed fracture; M51.36 Other intervertebral disc degeneration, lumbar region; X58.XXXA Exposure to other specified factors, initial encounter | CPT/HCPCS: 99214 ==

== ENCOUNTER → 2023-07-10 08:50 | Outpatient (BNVA) | payer MEDICARE, OTHER, SELFPAY | PROVIDERS: PCP Internal Medicine; Visit Provider Anesthesiology Pain Medicine | DX: M48.062 Spinal stenosis, lumbar region with neurogenic claudication (principal); M54.16 Radiculopathy, lumbar region; M47.816 Spondylosis without myelopathy or radiculopathy, lumbar region; S32.000A Wedge compression fracture of unspecified lumbar vertebra, initial encounter for closed fracture; M51.36 Other intervertebral disc degeneration, lumbar region; X58.XXXA Exposure to other specified factors, initial encounter | CPT/HCPCS: 99214 ==

== ENCOUNTER → 2023-07-31 09:46 | Outpatient (BNVA) | payer MEDICARE, OTHER, SELFPAY | PROVIDERS: PCP Internal Medicine; Visit Provider Anesthesiology Pain Medicine | DX: M48.062 Spinal stenosis, lumbar region with neurogenic claudication (principal); M54.16 Radiculopathy, lumbar region; M47.816 Spondylosis without myelopathy or radiculopathy, lumbar region; S32.000A Wedge compression fracture of unspecified lumbar vertebra, initial encounter for closed fracture; M51.36 Other intervertebral disc degeneration, lumbar region; X58.XXXA Exposure to other specified factors, initial encounter | CPT/HCPCS: 99214 ==

== ENCOUNTER → 2023-08-28 10:52 | Outpatient (BNVA) | payer MEDICARE, OTHER, SELFPAY | PROVIDERS: PCP Internal Medicine; Visit Provider Anesthesiology Pain Medicine | DX: M48.062 Spinal stenosis, lumbar region with neurogenic claudication (principal); M54.16 Radiculopathy, lumbar region; M47.816 Spondylosis without myelopathy or radiculopathy, lumbar region; S32.000A Wedge compression fracture of unspecified lumbar vertebra, initial encounter for closed fracture; M51.36 Other intervertebral disc degeneration, lumbar region; X58.XXXA Exposure to other specified factors, initial encounter | CPT/HCPCS: 99214 ==

== ENCOUNTER → 2023-09-09 14:06 | Outpatient (BNVA) | payer MEDICARE, OTHER, SELFPAY | PROVIDERS: PCP Internal Medicine; Visit Provider Internal Medicine Cardiovascular Disease | DX: I25.10 Atherosclerotic heart disease of native coronary artery without angina pectoris (principal); Z86.79 Personal history of other diseases of the circulatory system; I50.32 Chronic diastolic (congestive) heart failure; E78.5 Hyperlipidemia, unspecified; Z87.891 Personal history of nicotine dependence | CPT/HCPCS: 99214 ==

== ENCOUNTER → 2023-09-25 09:41 | Outpatient (BNVA) | payer MEDICARE, OTHER, SELFPAY | PROVIDERS: PCP Internal Medicine; Visit Provider Anesthesiology Pain Medicine | DX: M48.062 Spinal stenosis, lumbar region with neurogenic claudication (principal); M54.16 Radiculopathy, lumbar region; M47.816 Spondylosis without myelopathy or radiculopathy, lumbar region; S32.000A Wedge compression fracture of unspecified lumbar vertebra, initial encounter for closed fracture; M51.36 Other intervertebral disc degeneration, lumbar region; X58.XXXA Exposure to other specified factors, initial encounter | CPT/HCPCS: 99214 ==

== ENCOUNTER 2023-09-26 13:22 | Emergency (ER) | payer MEDICARE, OTHER, SELFPAY ==
[2023-09-26 13:27] VITALS: BP 130/69; PULSE 68; RESP 17; TEMP 36.6; O2SAT 93; BMI 29.9
[2023-09-26 14:15] LABS: Add Urine Microscopic? YES; Bilirubin Urine Neg (Negative); Blood Urine 3+ (Negative); Glucose Urine UA Norm (Normal); Ketones Urine Negative (Negative); Leukocyte Esterase Urine Negative (Negative); Nitrate Urine Negative (Negative); Protein Urine Neg (Negative); Urine Appearance Clear (CLEAR); Urine Color Yellow (Yellow); Urobilinogen Urine Norm (Negative); pH Urine 5 (5-7)
[2023-09-26 14:16] LABS: Add Urine Culture? Yes; Bacteria Urine 1+ /hpf; RBC Urine 40-50 /hpf (0-2); Squamous Epithelial Cell Urine 0-4 /hpf (0-5); WBC Urine 0-4 /hpf (0-5)
[2023-09-26 15:05] LABS: Basophils % 0.4 %; Eosinophils # 0.2 10^3/uL (0.0-0.8); Eosinophils % 1.9 %; Hematocrit 46.1 % (37-53); Lymphocytes # 1.3 10^3/uL (0.8-4.8); Lymphocytes % 15.6 %; Mean Corpuscular HGB Conc 32.1 g/dL (30-55); Mean Corpuscular Hemoglobin 27.8 pg (27-33); Mean Corpuscular Volume 86.7 fl (82-101); Mean Platelet Volume 9.9 fL (7.4-10.4); Monocytes # 0.7 10^3/uL (0.2-0.9); Monocytes % 7.9 %; Neutrophils # 6.07 10^3/uL (1.8-7.7); Nucleated Red Blood Cells % 0 %; Platelet Count 168 10^3/cmm (157-399); Red Blood Count 5.32 10^6/uL (3.85-5.65); Red Cell Distribution Width 14.7 % (12.1-15.1); White Blood Count 8.21 10^3/uL (3.29-11.43)
[2023-09-26 15:22] LABS: Alanine Aminotransferase 13 U/L (0-41); Albumin Level 4.1 g/dL (3.5-5.2); Alkaline Phosphatase 99 U/L (40-130); Anion Gap 16.6 (5-19); Aspartate Amino Transferase 13 U/L (0-40); Blood Urea Nitrogen 40 mg/dL (8-23); Calcium 9.4 mg/dL (8.5-10.5); Carbon Dioxide 25 mmol/L (22-29); Chloride 102 mmol/L (98-107); Creatinine Clr Calc Pharmacy 56.0195; Globulin 3.7 g/dL (1.3-4.6); Glucose 109 mg/dL (65-115); Osmolality Calculated 296 mOsm/kg (285-295); Potassium 5.6 mmol/L (3.5-5.1); Sodium 138 mmol/L (136-145); Total Bilirubin 0.5 mg/dL (0.15-1.2); Total Protein 7.8 g/dL (6.6-8.7)
[2023-09-26 17:57] VITALS: BP 121/77; PULSE 70; RESP 16; O2SAT 96
== END 2023-09-26 18:09 | disposition left against medical advice (07) ==
PROVIDERS: Physician Assistant; Emergency Provider Family Medicine; PCP Internal Medicine
DX: Z53.21 Procedure and treatment not carried out due to patient leaving prior to being seen by health care provider (principal)
CPT/HCPCS: 80053; 81001; 85025; 87086

== ENCOUNTER 2023-09-30 09:15 | Emergency (ER) | payer MEDICARE, OTHER, SELFPAY ==
[2023-09-30 09:31] VITALS: BP 127/65; PULSE 64; RESP 16; TEMP 36.5; O2SAT 92
--- NOTE | 2023-09-30 09:33 | ED_ITS ---
HPI - General Adult 2 General: Chief complaint: Urogenital-Male Stated complaint: trouble urinating Time Seen by Provider: 09/30/23 09:19 Source: patient Mode of arrival: ambulatory History of Present Illness: 77-year-old male presents emergency room complaining of pelvic discomfort. He has chronic back pain and pain radiating down his legs now he has been having difficulty with urination. He is burning when he urinates. He has pain in the genital area. His back and leg pain is about at his baseline no fecal incontinence. He is concerned he may have a recurrence of bladder cancer or recurrent UTI Onset (ago): day(s) Quality: aching Pain Consistency: constant Relieving factors: none Exacerbating factors: none Associated symptoms: Deny chest pain, confusion, cough, diaphoresis, decreased appetite, dyspnea, fevers/chills, headache(s), malaise, nausea, rash, palpitations, seizures, short of breath, syncope, vomiting or weakness Treatments prior to arrival: none Review of Systems 2 Const: Denies: fever(s), chills, malaise or diaphoresis Card: Denies: chest pain, palpitations or syncope Resp: Denies: dyspnea GI: Denies: abdominal pain, nausea or vomiting : Reports: dysuria, urinary frequency and hematuria; Denies: urinary urgency Musc: Denies: neck pain or back pain Skin/Breast: Denies: rash Neuro: Denies: headache(s) or confusion PFSH ED 2 PFSH: Medical History Hx of hyperlipidemia Diabetes CAD (coronary artery disease) Dizziness Hx of cardiac murmur Acute UTI Immunocompromised Partial small bowel obstruction Dysuria Abdominal pain Hx of aneurysm Status post AAA repair History of COPD History of dysphagia History of Young's esophagus Hx of gastroesophageal reflux (GERD) History of deafness History of low back pain Hx of coronary atherosclerosis Hx of emphysema Hx of chronic arthritis Bladder cancer Bladder mass A-fib History of heart failure Surgical History Status post surgical removal and fulguration of bladder neoplasm Hx of esophagogastroduodenoscopy Hx of appendectomy History of toe surgery RIGHT SIDE BIG TOE REMOVED Hx of foot surgery Hx of CABG Family History Father , AT AGE 55 Heart attack Mother , AT AGE 67 Lung disease Other CAD (coronary artery disease) Hyperlipidemia Denies family history of Diabetes Clotting disorder Dementia Psychiatric illness Chronic kidney disease (CKD) Suicide Anesthesia complication Bleeding disorder Hypertension Stroke Social History Smoking and tobacco/nicotine status: former use of tobacco/nicotine Alcohol intake: never Substance/Drug Use: never Marital status: Current occupational status: retired Physical Exam 2 Const: COMMON NORMALS: no acute distress GENERAL APPEARANCE: cooperative and comfortable ORIENTATION/CONSCIOUSNESS: Yes awake, Yes oriented to person, Yes oriented to place and Yes oriented to time HENMT: COMMON NORMALS: normocephalic, atraumatic and hearing grossly normal bilaterally HEAD & SCALP: normocephalic and atraumatic Resp: COMMON NORMALS: normal respiratory effort, No retractions, No use of accessory muscles and clear to auscultation bilaterally AUSCULTATION: clear to auscultation bilaterally Cardio: COMMON NORMALS: regular rate, regular rhythm and No murmurs present (Cardio) RATE: regular rate RHYTHM: regular rhythm GI: COMMON NORMALS: Soft to palpation and No hepatosplenomegaly present A USCULTATION: Yes normoactive bowel sounds PALPATION: Yes Soft to palpation, No Tenderness to palpation present (GI), No Guarding due to palpation present (GI) and Yes No hepatosplenomegaly present Extremity: COMMON NORMALS: normal to inspection, capillary refill normal, no clubbing, cyanosis or edema, no calf tenderness and no pedal edema Neuro: SENSORIUM/ORIENTATION: Yes oriented to person, Yes oriented to place and Yes oriented to time Skin: COMMON NORMALS: no rashes or lesions noted GENERAL SKIN EXAM: no rashes or lesions noted Course 2 Vital Signs: Vital signs: Vital Signs Temperature 97.7 F 09/30/23 09:31 Pulse Rate 64 09/30/23 09:31 Respiratory Rate 16 09/30/23 09:31 Blood Pressure 127/65 09/30/23 09:31 Pulse Oximetry 92 09/30/23 09:31 MDM - General Adult Medical Decision Making No significant urinary retention bladder scan shows 165 mL in the bladder after urination. UA shows hematuria CT shows thickening of the bladder wall. No leukocytosis. Will start him on Cipro to cover for infection culture urine discharged home on increased dose of tamsulosin and follow-up with his urologist as soon as he is able. If he has any worsening symptoms or urinary retention return to the emergency room develops fever return to the emergency room. Medical Records I reviewed the patient's medical records. Lab Data I reviewed the patient's lab results. 09/30/23 09:40 09/30/23 09:40 Radiology Impressions Abdomen/Pelvis CT 09/30/23 11:13 IMPRESSION: 1. Acute, marked urinary bladder wall thickening, stranding and increased attenuation within the bladder. Findings are most consistent with acute cystitis. The bladder wall appears thickened with increased attenuation in the lumen, may represent pus or blood. Neoplasm is not excluded. 2. No renal obstruction. There is marked perinephric stranding which is very similar to the prior examination from 08/27/2022. 3. Cholelithiasis in a contracted gallbladder. 4. Stable abdominal aorta. Laboratory Results WBC 6.76 10^3/uL (3.29-11.43) 09/30/23 09:40 RBC 5.03 10^6/uL (3.85-5.65) 09/30/23 09:40 Hgb 13.90 g/dL (11.27-16.99) 09/30/23 09:40 Hct 43.5 % (37-53) 09/30/23 09:40 MCV 86.5 fl (82-101) 09/30/23 09:40 MCH 27.6 pg (27-33) 09/30/23 09:40 MCHC 32.0 g/dL (30-55) 09/30/23 09:40 RDW 14.9 % (12.1-15.1) 09/30/23 09:40 Plt Count 160 10^3/cmm (157-399) 09/30/23 09:40 MPV 9.7 fL (7.4-10.4) 09/30/23 09:40 Neut % (Auto) 68.8 % 09/30/23 09:40 Lymph % (Auto) 17.8 % 09/30/23 09:40 [place] % (Auto) 8.6 % 09/30/23 09:40 Eos % (Auto) 4.1 % 09/30/23 09:40 Baso % (Auto) 0.4 % 09/30/23 09:40 Neut # (Auto) 4.65 10^3/uL (1.8-7.7) 09/30/23 09:40 Lymph # (Auto) 1.2 10^3/uL (0.8-4.8) 09/30/23 09:40 [place] # (Auto) 0.6 10^3/uL (0.2-0.9) 09/30/23 09:40 Eos # (Auto) 0.3 10^3/uL (0.0-0.8) 09/30/23 09:40 Baso # (Auto) 0.0 10^3/uL (0.0-0.1) 09/30/23 09:40 Nucleated RBC % (auto) 0 % 09/30/23 09:40 Nucleated RBCs # 0.0 /100WBC 09/30/23 09:40 Sodium 141 mmol/L (136-145) 09/30/23 09:40 Potassium 4.4 mmol/L (3.5-5.1) 09/30/23 09:40 Chloride 104 mmol/L (98-107) 09/30/23 09:40 Carbon Dioxide 24 mmol/L (22-29) 09/30/23 09:40 Anion Gap 17.4 (5-19) 09/30/23 09:40 BUN 30 mg/dL (8-23) H 09/30/23 09:40 Creatinine 1.2 mg/dL (0.7-1.2) 09/30/23 09:40 GFR Calculation Not Reportable 09/30/23 09:40 Glucose 134 mg/dL (65-115) H 09/30/23 09:40 Calculated Osmolality 300 mOsm/kg (285-295) H 09/30/23 09:40 Calcium 9.1 mg/dL (8.5-10.5) 09/30/23 09:40 Total Bilirubin 0.3 mg/dL (0.15-1.2) 09/30/23 09:40 AST 11 U/L (0-40) 09/30/23 09:40 ALT 14 U/L (0-41) 09/30/23 09:40 Alkaline Phosphatase 90 U/L (40-130) 09/30/23 09:40 Total Protein 7.1 g/dL (6.6-8.7) 09/30/23 09:40 Albumin 3.9 g/dL (3.5-5.2) 09/30/23 09:40 Globulin 3.2 g/dL (1.3-4.6) 09/30/23 09:40 Urine Color Dark yellow (Yellow) 09/30/23 09:58 Urine Appearance Cloudy (CLEAR) A 09/30/23 09:58 Urine pH 6.5 (5-7) 09/30/23 09:58 Ur Specific [place] 1.010 (1.005-1.030) 09/30/23 09:58 Urine Protein 1+ (Negative) H 09/30/23 09:58 Urine Glucose (UA) Norm (Normal) 09/30/23 09:58 Urine Ketones 1+ (Negative) H 09/30/23 09:58 Urine Blood 3+ (Negative) H 09/30/23 09:58 Urine Nitrate Negative (Negative) 09/30/23 09:58 Urine Bilirubin 1+ (Negative) H 09/30/23 09:58 Urine Urobilinogen 4 mg/dL (Negative) H 09/30/23 09:58 Ur Leukocyte Esterase Negative (Negative) 09/30/23 09:58 Urine RBC >100 /hpf (0-2) H 09/30/23 09:58 Urine WBC 0-4 /hpf (0-5) H 09/30/23 09:58 Ur Squamous Epith Cells 0-4 /hpf (0-5) H 09/30/23 09:58 Amorphous Sediment Not Reportable 09/30/23 09:58 Urine Bacteria None /hpf (NONE) 09/30/23 09:58 Urine Mucus Trace /hpf 09/30/23 09:58 All radiology interpretation(s) finalized by discharge Discharge Plan Discharge Patient Disposition: Home Clinical Impression: Cystitis Condition: Stable Prescriptions: New Cipro 500 mg tablet 500 mg PO BID Qty: 14 0RF tamsulosin 0.4 mg capsule 0.8 mg PO DAILY Qty: 60 0RF No Action metformin 500 mg tablet extended release 24 hr 500 mg PO DAILY gabapentin 600 mg tablet 1,200 mg PO TID hydrocodone-acetaminophen 5-325 mg tablet 1 tab PO BID PRN (Reason: pain) 30 Days Qty: 60 0RF Rx Instructions: not to be taken with other opioids or alcohol. atorvastatin 40 mg tablet 40 mg PO DAILY Qty: 90 4RF Lasix 40 mg tablet 20 mg PO DAILY PRN (Reason: edema) Qty: 90 4RF metoprolol tartrate 25 mg tablet 25 mg PO BID Qty: 180 3RF potassium chloride 20 mEq tablet extended release 20 meq PO DAILY Qty: 30 0RF tamsulosin 0.4 mg Capsule 0.4 mg PO BEDTIME pantoprazole 40 mg tablet,delayed release (DR/EC) 40 mg PO DAILY Qty: 30 0RF Senna-S 8.6-50 mg tablet 1 tab-cap PO DAILY PRN (Reason: Constipation) Discharge Orders: Discharge ED (Routine); Ordered 09/30/23 Ordered By: Silas Mendoza Referrals: Oscar Mcmanus, [Primary Care Provider] - Discharge Diet: Usual diet Discharge Activity: Resume usual activity Patient Instructions: Opioid Safety, Pain Management Activity Restrictions/Additional Instructions: Thank you for choosing [facility] for your healthcare needs today. Please realize this is an emergency room and that we are providing you with a medical screening exam and this may not be complete and all inclusive of all the testing and or work up that you may need to determine your ailment or severity of your illness. It is very important that you follow up as instructed or that you return to the Emergency Department should you have concerns or if your condition changes or worsens in any way. You were seen today for complaints difficulty with urination and pelvic discomfort. CT showed thickening of the bladder wall urine showed large amount of blood in the in the urine. Recommend that you start on Cipro 500 twice daily for the next 7 days. Increase your tamsulosin to 0.8 (2 tablets) at bedtime. You should contact your urologist and follow-up with them within the next 2 weeks. Return to the ER if you have further problems. Coding Level of Care Code ED Prosthodontist for Berta Limon
[2023-09-30 09:49] LABS: Basophils % 0.4 %; Eosinophils # 0.3 10^3/uL (0.0-0.8); Eosinophils % 4.1 %; Hematocrit 43.5 % (37-53); Lymphocytes # 1.2 10^3/uL (0.8-4.8); Lymphocytes % 17.8 %; Mean Corpuscular Hemoglobin 27.6 pg (27-33); Mean Corpuscular Volume 86.5 fl (82-101); Mean Platelet Volume 9.7 fL (7.4-10.4); Monocytes # 0.6 10^3/uL (0.2-0.9); Monocytes % 8.6 %; Neutrophils # 4.65 10^3/uL (1.8-7.7); Neutrophils % 68.8 %; Nucleated Red Blood Cells % 0 %; Platelet Count 160 10^3/cmm (157-399); Red Blood Count 5.03 10^6/uL (3.85-5.65); Red Cell Distribution Width 14.9 % (12.1-15.1); White Blood Count 6.76 10^3/uL (3.29-11.43)
[2023-09-30 10:13] LABS: Alanine Aminotransferase 14 U/L (0-41); Albumin Level 3.9 g/dL (3.5-5.2); Alkaline Phosphatase 90 U/L (40-130); Anion Gap 17.4 (5-19); Aspartate Amino Transferase 11 U/L (0-40); Blood Urea Nitrogen 30 mg/dL (8-23); Calcium 9.1 mg/dL (8.5-10.5); Carbon Dioxide 24 mmol/L (22-29); Chloride 104 mmol/L (98-107); Creatinine Clr Calc Pharmacy 69.7682; Globulin 3.2 g/dL (1.3-4.6); Glucose 134 mg/dL (65-115); Osmolality Calculated 300 mOsm/kg (285-295); Potassium 4.4 mmol/L (3.5-5.1); Sodium 141 mmol/L (136-145); Total Bilirubin 0.3 mg/dL (0.15-1.2); Total Protein 7.1 g/dL (6.6-8.7)
[2023-09-30 10:28] LABS: Add Urine Microscopic? YES; Bilirubin Urine 1+ (Negative); Blood Urine 3+ (Negative); Glucose Urine UA Norm (Normal); Ketones Urine 1+ (Negative); Leukocyte Esterase Urine Negative (Negative); Nitrate Urine Negative (Negative); Protein Urine 1+ (Negative); Urine Appearance Cloudy (CLEAR); Urine Color Dark Yellow (Yellow); Urobilinogen Urine 4 mg/dL (Negative); pH Urine 6.5 (5-7)
[2023-09-30 10:44] LABS: Add Urine Culture? Yes; Mucus Urine TRACE /hpf; RBC Urine >100 /hpf (0-2); Squamous Epithelial Cell Urine 0-4 /hpf (0-5); WBC Urine 0-4 /hpf (0-5)
--- NOTE | 2023-09-30 11:13 | CT_ITS ---
WS: [id number] CT ABDOMEN AND PELVIS NONCONTRAST HISTORY: flank pain/hematuria TECHNIQUE: Imaging performed through the abdomen and pelvis. Coronal and sagittal reformats are submi tted. All CT scans at [facility] use at least one of these dose optimization techniques: auto mated exposure control; mA and/or kV adjustment per patient size (includes targeted exams where dose is matched to clinical indication); or iterative reconstruction. DLP: 1069.33 mGy.cm COMPARISON: 08/27/2022, 01/09/2022 Lower thorax: Interstitial fibrosis at the lung bases. Mild cardiac enlargement. Moderate hiatal evan ia. Liver: Normal size liver. No mass or bile duct dilatation. Gallbladder: Contracted with stones. No adjacent inflammation. Pancreas: Normal size and attenuation. Normal pancreatic duct. No pancreatitis or mass. Spleen: Normal. Adrenal glands: Normal. No mass. Right kidney: Moderate perinephric stranding. There is no obstruction. Previously described cyst exop hytic from the anterior kidney measures 1.9 cm. There is a larger cyst in the lower pole measuring 3. 4 cm. Left kidney: Diffuse perinephric stranding with no obstruction. Aorta: Dilatation of the suprarenal aorta. Maximum AP diameter 5.0 cm is similar to the study from 08/27/2022. No para-aortic hematoma. Status post endovascular repair of the infrarenal aorta. No periaort ic hematoma. Stable. No free fluid, intraperitoneal air or significant lymphadenopathy. GI tract: Nondistended stomach. No small bowel obstruction. No colon obstruction. Abdominal wall: Negative. No hernia. Pelvis: There is new soft tissue stranding surrounding the urinary bladder with bladder wall thickeni ng and irregularity. No free fluid. Hounsfield units within the urinary bladder slightly elevated sug gesting increased proteinaceous content. Patent bilateral inguinal canals containing omentum only. Osseous structures: L2 mild anterior wedging. CT/CT kidney stone [id number] IMPRESSION: 1. Acute, marked urinary bladder wall thickening, stranding and increased atte nuation within the bladder. Findings are most consistent with acute cystitis. T he bladder wall appears thickened with increased attenuation in the lumen, may represent pus or blood. Neoplasm is not excluded. 2. No renal obstruction. There is marked perinephric stranding which is very s imilar to the prior examination from 08/27/2022. 3. Cholelithiasis in a contracted gallbladder. 4. Stable abdominal aorta.
== END 2023-09-30 13:02 | disposition home or self-care (01) ==
PROVIDERS: Emergency Provider Family Medicine; PCP Internal Medicine
DX: N30.90 Cystitis, unspecified without hematuria (principal); Z79.84 Long term (current) use of oral hypoglycemic drugs; Z87.891 Personal history of nicotine dependence; Z95.1 Presence of aortocoronary bypass graft; I25.10 Atherosclerotic heart disease of native coronary artery without angina pectoris; E78.5 Hyperlipidemia, unspecified; E11.9 Type 2 diabetes mellitus without complications; J44.9 Chronic obstructive pulmonary disease, unspecified; Z85.51 Personal history of malignant neoplasm of bladder; Z87.440 Personal history of urinary (tract) infections; I50.9 Heart failure, unspecified
CPT/HCPCS: 36415; 51798; 74176; 80053; 81001; 85025; 87086; 99284

== ENCOUNTER → 2024-03-11 15:58 | Outpatient (BNVA) | payer MEDICARE, OTHER, SELFPAY | PROVIDERS: PCP Internal Medicine; Visit Provider Internal Medicine Cardiovascular Disease | DX: I44.0 Atrioventricular block, first degree (principal); I49.8 Other specified cardiac arrhythmias; I49.3 Ventricular premature depolarization; R07.9 Chest pain, unspecified; R06.02 Shortness of breath; I25.118 Atherosclerotic heart disease of native coronary artery with other forms of angina pectoris; I50.32 Chronic diastolic (congestive) heart failure; Z86.79 Personal history of other diseases of the circulatory system; I48.0 Paroxysmal atrial fibrillation; E78.5 Hyperlipidemia, unspecified; Z87.891 Personal history of nicotine dependence; Z86.39 Personal history of other endocrine, nutritional and metabolic disease | CPT/HCPCS: 93005; 99214 ==

== ENCOUNTER 2024-03-31 07:50 | Outpatient (CLI) | payer MEDICARE, OTHER, SELFPAY ==
--- NOTE | 2024-03-31 | ECG_ITS ---
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 Interpretive Statements Lung unchanged pre/post procedure; Intraprocedure shortess of breath; Symptoms resoled by discharge PROCEDURE: At the baseline, the EKG revealed normal sinus rhythm with a poor R wave progression. First-degree AV block. Nonspecific ST changes. Minimal left axis deviation.. The baseline heart was 64 bpm with a blood pressue of 121/80 mm of Hg Lexiscan was infused over a period of 20 seconds. A total of 0.4 milligrams of Lexiscan was infused. The stress phase was continued for a total of 5 minutes. Heart rate at the end of the stress phase was 73 bpm with a blood pressure 126/58 mm of Hg. The EKG at the peak infusion revealed no significant changes. Sestamibi was injected 20 seconds after the Lexiscan infusion. Heart rate at the end of the recovery phase was 72 bpm with a blood pressure of 124/67 mm of Hg. CONCLUSION: 1. No significant EKG changes with the LexiScan infusion 2. No LexiScan induced chest pain or cardiac arrhythmia 3. Normal blood pressure and heart rate response 4. Sestamibi/sestamibi perfusion scan pending; see separate report. Electronically Signed On 04-03-2024 12:23:50 WAXER TENDER by Mari Keen M.D. [email or web address]
[2024-03-31 08:19] VITALS: BMI 27.5
--- NOTE | 2024-03-31 08:20 | NMCV_ITS ---
NM louie perf SPECT r/s* [id number] Fernando Lowe Age: 78 Gender: M : 1945 Exam Date: 03/31/2024 08:53 Ordering Phys: Mari Keen MD ([email or web address]) Technologist: REJI Handley Exam Location: [facility] Indications: cp STRESS TEST [facility] IMAGE PROTOCOL Rest/Stress 1 Lexiscan Day Radiopharmaceutical Dose (mCi) Administration Site Administered by Rest: Tc-99m 8.9 IV REJI Handley Stress:Tc-99m 29.3 IV REJI Coats Rest: 03/31/2024 60 Discovery 630 Stress: 03/31/2024 30 Discovery 630 0.4mg Lexiscan. Images obtained in supine and prone position. SPECT RESULTS Technical Quality: Good Raw Data Analysis: Normal Image Corrections: No attenuation or motion correction applied Summed Stress Score: 12 Summed Rest Score: 10 Summed Difference Score: 2 PERFUSION FINDINGS Moderate area of moderately decreased tracer uptake involving the inferior, inferolateral, and apical lateral regions with a slight reversibility in the basal and mid inferior region FUNCTIONAL RESULTS (calculated via Gated SPECT) Stress Image LV EF (%): 59 Stress EDV (mL):106 TID: 1.11 Stress ESV (mL):43 FUNCTIONAL FINDINGS: Segmental wall motion analysis revealed no gross wall motion normalities. IMPRESSIONS 1. Myocardial perfusion imaging revealing moderate area of moderately decreased tracer uptake involving the inferior, inferolateral and apical lateral regions with a slight reversibility in the inferior region, suggesting myocardial scarring in distribution of the right coronary artery/circumflex artery with a small area of possible rogelio-infarction ischemia mainly in the RCA territory(the summed stress score of 12 with the difference score of 2) 2. Normal LV ejection fraction 59%. 3. LV wall motion analysis revealing no gross wall motion abnormalities. 4. LV volume, upper limit of normal No similar previous studies are available for comparison Dr Mari Keen MD FACC (Electronically Signed) Final Date: 31 March 2024 17:50 S
[2024-03-31] MEDS: regadenoson 0.4 Mg/5 ml Syringe IVP (09:37)
[2024-03-31 09:45] VITALS: BP 124/67; PULSE 75
== END 2024-03-31 07:51 | disposition home or self-care (01) ==
PROVIDERS: PCP Internal Medicine; Visit Provider Internal Medicine Cardiovascular Disease
DX: Z98.61 Coronary angioplasty status (principal); R94.39 Abnormal result of other cardiovascular function study
CPT/HCPCS: 36415; 78452; 93017; 96374; A9500; J2785

== ENCOUNTER → 2024-10-12 13:18 | Outpatient (BNVA) | payer MEDICARE, OTHER, SELFPAY | PROVIDERS: PCP Internal Medicine; Visit Provider Internal Medicine Cardiovascular Disease | DX: I25.118 Atherosclerotic heart disease of native coronary artery with other forms of angina pectoris (principal); I50.32 Chronic diastolic (congestive) heart failure; I48.0 Paroxysmal atrial fibrillation; E78.5 Hyperlipidemia, unspecified; Z86.79 Personal history of other diseases of the circulatory system; Z87.891 Personal history of nicotine dependence | CPT/HCPCS: 99214 ==

== ENCOUNTER 2024-10-26 07:41 | Outpatient (CLI) | payer MEDICARE, OTHER, SELFPAY ==
--- NOTE | 2024-10-26 08:15 | CT_ITS ---
WS: [id number] CTA ABDOMEN TECHNIQUE: Noncontrast plus contrast enhanced CTA of the abdominal aorta with coronal and sagittal reformatted images and additional MIP Images. CLINICAL INFORMATION: AAA COMPARISON: 08/27/2022 DLP: 1476.[address] scans at [facility] use at least one of these dose optimization techniques: automated exposure control; mA and/or kV adjustment per patient size (includes targeted exams where dose is matched to clinical indication); or iterative reconstruction. FINDINGS: Presumed prior aneurysm repair although no radiopaque endograft visualized in the upper abdominal aorta. Patent bifurcated aortoiliac stent. No evidence of endoleak on the delayed imaging. RIGHT renal artery is patent. Mild narrowing of the LEFT renal artery proximally. Celiac and SMA are patent. The excluded aneurysm sac measures approximately 4.8 x 5.1 cm AP by transverse unchanged. Configuration of the abdominal aorta is unchanged Interstitial thickening with fibrosis in the lung bases. Cardiomegaly. Reflux into the hepatic veins suggestive of RIGHT heart dysfunction. Small esophageal hernia. Fatty atrophy of the pancreas. Adrenal glands are normal. Normal renal parenchymal enhancement. RIGHT renal cysts. CT/CT angio abdomen [id number] IMPRESSION: 1. Presumed prior aneurysm repair is unchanged in appearance. Excluded aneurys m sac is stable. 2. Bifurcated iliac stent is patent and appears unchanged. 3. Mild narrowing of the LEFT proximal renal artery. RIGHT renal artery is pat ent. 4. Celiac and SMA are patent.
[2024-10-26 08:24] LABS: Blood Urea Nitrogen 29 mg/dL (8-23)
[2024-10-26] MEDS: iohexol 350 mg/mL 500 mL Btl (per mL) IV (08:35)
== END 2024-10-26 07:42 | disposition home or self-care (01) ==
PROVIDERS: PCP Electrodiagnostic Medicine; Visit Provider Internal Medicine Cardiovascular Disease
DX: Z86.79 Personal history of other diseases of the circulatory system (principal); J84.10 Pulmonary fibrosis, unspecified; S92.425A Nondisplaced fracture of distal phalanx of left great toe, initial encounter for closed fracture; I71.40 Abdominal aortic aneurysm, without rupture, unspecified; L03.032 Cellulitis of left toe; I51.7 Cardiomegaly; X50.9XXA Other and unspecified overexertion or strenuous movements or postures, initial encounter; N28.1 Cyst of kidney, acquired; K44.9 Diaphragmatic hernia without obstruction or gangrene
CPT/HCPCS: 73630; 74175; 82565; 84520; 99204

== ENCOUNTER → 2024-11-10 08:18 | Outpatient (BNVA) | payer MEDICARE, OTHER, SELFPAY | PROVIDERS: PCP Electrodiagnostic Medicine; Visit Provider Podiatrist Foot & Ankle Surgery | DX: S92.425D Nondisplaced fracture of distal phalanx of left great toe, subsequent encounter for fracture with routine healing (principal); X58.XXXD Exposure to other specified factors, subsequent encounter; L03.032 Cellulitis of left toe | CPT/HCPCS: 73630; 99213 ==